=== PATIENT | male | born 1935 | race Caucasian/White ===

== ENCOUNTER 2020-07-09 09:09 | Outpatient (CLI) | payer MEDICARE, SELFPAY ==
--- NOTE | 2020-07-09 09:16 | CT_ITS ---
WS: [id number] CT ABDOMEN PELVIS TECHNIQUE: Contrast-enhanced CT of the abdomen and pelvis with coronal and sagittal reformatted image s. CLINICAL INFORMATION: LOWER ABDOMEN PAIN COMPARISON: None. DLP: 1190.[address] scans at [facility] use at least one of these dose optimization techniques: automat ed exposure control; mA and/or kV adjustment per patient size (includes targeted exams where dose is matched to clinical indication); or iterative reconstruction. FINDINGS: Diffuse fatty infiltration the liver. Large area of low-attenuation involving the right hepatic lobe with surrounding micronodular disease. Findings are most compatible with metastatic disease. Large ri ght hepatic lesion measures 9.1 x 6.1 CM. Portal vein and splenic vein are patent. Small calculus in the gallbladder. Diffuse induration with mesenteric nodularity consistent with peritoneal carcinomatosis. Small amount of perihepatic and perisplenic ascites. Small amount of fluid in the pericolic gutters. Small splenu le. Small esophageal hiatal hernia. Lung bases are well aerated. Small right pleural effusion. Fatty atrophy of the pancreas. Mild aortic calcification. Small infrarenal abdominal aortic aneurysm measur ing 2.7 x 3.1 CM. Adrenal glands are normal. No hydronephrosis in either kidney. Bilateral renal cyst s the largest on the right measuring 5.5 x 4.5 CM. Mild prostate enlargement with calcification. Prostate measures 5.1 CM. Mild thickening of the semina l vesicles. No periaortic or retroperitoneal lymphadenopathy. Small amount of free fluid in the pelvi s. No inguinal lymphadenopathy. No pelvic lymphadenopathy. CT/CT abdomen pelvis w con* [id number] IMPRESSION: 1. Large low-attenuation lesion right hepatic lobe measuring 6.1 x 9.1 cm. Corrie rounding satellite nodules. Findings suspicious for metastatic disease. 2. Induration with nodular implants involving the greater omentum consistent w ith peritoneal carcinomatosis. 3. Small amount of perihepatic and perisplenic ascites. Small amount of fluid in the pericolic gutters. 4. No abdominal or pelvic lymphadenopathy. 5. Enlarged prostate measuring 5.1 CM. Recommend correlation PSA. Mild thicken ing of the seminal vesicles. 6. Bladder is contracted with mild bladder wall thickening can be seen with bl adder outlet obstruction. 7. Small infrarenal abdominal aortic aneurysm measuring 2.7 x [address] Ellis nurse at 07/09/2020 11:43 AM.
[2020-07-09] MEDS: iohexol 300 mg/mL 50 mL Btl PO (09:27)
[2020-07-09] MEDS: iohexol 300 mg/mL 100 mL Btl IV (10:51)
== END 2020-07-09 09:10 | disposition home or self-care (01) ==
LOC: RADWPI 09:12
PROVIDERS: PCP Internal Medicine; Visit Provider Internal Medicine
DX: R10.30 Lower abdominal pain, unspecified (principal); I71.4 Abdominal aortic aneurysm, without rupture; N40.0 Benign prostatic hyperplasia without lower urinary tract symptoms; R18.8 Other ascites; K76.9 Liver disease, unspecified
CPT/HCPCS: 74177; Q9967

== ENCOUNTER 2020-07-31 06:34 | Day surgery (SDC) | payer MEDICARE, SELFPAY ==
[2020-07-31] VITALS (12 sets, daily range): BP systolic 95–164; BP diastolic 57–99; PULSE 63–72; RESP 12–18; TEMP 36.3–36.5; O2SAT 92–98
--- NOTE | 2020-07-31 | US_ITS ---
WS: [id number] ULTRASOUND-GUIDED LIVER BIOPSY HISTORY: LIVER LESION Procedure, risks, and complications have been explained to the patient. Consent is obtained. Risk of possible bowel perforation was included. There is a loop of colon that extends very close to the surf maryam of the liver. Comparison: 07/09/2020. Skin is cleansed with ChloraPrep and then anesthetized with 1% buffered lidocaine. Core biopsy is per formed with a 18 gauge Achieve needle. Specimen is placed within formalin. No complications encounter ed. The colon is visualized during the examination and does not appear to be along the tract of the n eedle. US/US biopsy liver [id number] IMPRESSION: 2 core biopsies were performed of the lesion within the liver. Specimen placed in formalin.
[2020-07-31] MEDS: sodium chloride 0.9% 1,000 ML 30 ML IV ×2 (07:38→07:59)
[2020-07-31 07:45] LABS: INR 1.34 (0.8-1.2)
[2020-07-31] MEDS: midazolam 1 mg/mL INJ 2 mL IVP (08:36)
[2020-07-31] MEDS: fentaNYL 50 mcg/mL INJ 2mL IVP (08:37)
--- NOTE | 2020-07-31 09:27 | SUR.PHASEII ---
0855 Pt to be recovered following ultrasound guided needle biopsy of liver. Dressing to right lower quadrant D/I. VSS. Pt denies pain. Pt family notified of completion of procedure and at bedside. Will monitor for 2 hours post procedure per Dr. Martinez and discharge if stable.
--- NOTE | 2020-07-31 13:23 | SUR.PHASEII ---
1100 Pt VSS. No bleeding or hematoma noted. Discharge instructions given. Pt and friend verbalized understanding. Pt to resume ASA and Coumadin tomorrow, 08/01/20, per Dr. Martinez.
== END 2020-07-31 11:00 | disposition home or self-care (01) ==
LOC: CCL 06:34
PROVIDERS: Radiology Diagnostic Radiology; Radiology Neuroradiology; PCP Internal Medicine; Visit Provider Pathology Anatomic Pathology & Clinical Pathology
DX: C78.7 Secondary malignant neoplasm of liver and intrahepatic bile duct (principal); E78.00 Pure hypercholesterolemia, unspecified; I10 Essential (primary) hypertension; I48.91 Unspecified atrial fibrillation; I25.10 Atherosclerotic heart disease of native coronary artery without angina pectoris; Z80.0 Family history of malignant neoplasm of digestive organs; Z87.891 Personal history of nicotine dependence; Z79.01 Long term (current) use of anticoagulants; E66.3 Overweight; Z68.32 Body mass index [BMI] 32.0-32.9, adult; N40.0 Benign prostatic hyperplasia without lower urinary tract symptoms
CPT/HCPCS: 36415; 47000; 76942; 85610; 88307; 96374; 96375; J2250; J3010; J7030

== ENCOUNTER 2020-08-05 07:49 | Emergency (ER) | payer MEDICARE, SELFPAY ==
[2020-08-05 07:55] VITALS: BP 109/86; PULSE 78; RESP 20; TEMP 35.7; O2SAT 96; BMI 31.5
--- NOTE | 2020-08-05 08:05 | XR_ITS ---
WS: [id number] PORTABLE CHEST HISTORY: dyspnea/cough COMPARISON: 03/15/2013 Prior CABG. No pneumonia. No pleural effusion or pneumothorax. Cardiac size: Normal. Mediastinum/Aorta: Prior CABG. No mediastinal widening. Mild atherosclerosis. No osseous abnormality seen. XR/XR chest 1V portable [id number] IMPRESSION: Prior CABG. No pneumonia.
[2020-08-05 08:49] LABS: Basophils # 0.1 10^3/uL (0.0-0.1); Basophils % 0.4 %; Eosinophils % 0.3 %; Hematocrit 53.6 % (42.0-52.0); Lymphocytes # 1.2 10^3/uL (0.8-4.8); Lymphocytes % 8.9 %; Mean Corpuscular HGB Conc 31.7 g/dL (30.0-36.0); Mean Corpuscular Hemoglobin 28.8 pg (28.0-34.0); Mean Corpuscular Volume 90.8 fL (80-94); Mean Platelet Volume 8.9 fL (7.4-10.4); Monocytes # 0.8 10^3/uL (0.2-0.9); Monocytes % 6.4 %; Neutrophils # 10.87 10^3/uL (1.8-7.7); Neutrophils % 83.3 %; Nucleated Red Blood Cells % 0 %; Platelet Count 396 10^3/cmm (130-400); Red Cell Distribution Width 14.3 % (12.1-15.1)
--- NOTE | 2020-08-05 08:55 | US_ITS ---
WS: [id number] ULTRASOUND-GUIDED THERAPEUTIC PARACENTESIS Procedure, risks, and complications have been explained to the patient. Consent is obtained. Utilizing aseptic technique and 1% buffered lidocaine, a small dermatome was made through which a 5 F rench Yueh catheter was inserted. Approximately 3000 ml of clear peritoneal fluid was obtained witho ut difficulty. No complications encountered. US/US paracentesis abd w [id number] IMPRESSION: Uncomplicated paracentesis yielding 3000 ml of peritoneal fluid.
--- NOTE | 2020-08-05 08:58 | W.ED.ABDPA2 ---
HPI - Abdominal Pain General: Chief Complaint: Abdominal Pain Stated Complaint: Sent From /[facility] on Stomach Time Seen by Provider: 08/05/20 08:03 History of Present Illness: HPI narrative: 84-year-old male presents emergency room with complaints abdominal distention and bloating. 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 He is on Coumadin. He was off Coumadin for a time when I did the liver biopsy and then resumed it he is not sure of his last INR. He is evidently directed here by his primary care physician to have paracentesis done. He denies any shortness of breath he is not had any fever. He is just generally uncomfortable due to the bloating. MD elicited complaint: abdominal pain Pertinent past history: other (Gastric CA with hepatic mets) Onset (ago): day(s) Pain Consistency: constant Location: Epigastric Severity: severe Quality: stabbing and aching Radiation: back and chest Exacerbating factors: eating Associated Symptoms: Reports anorexia, belching, bloating, GI cramping, nausea and poor appetite; Denies change in bowel habits, change in stool character, chills, coffee ground emesis, constipation, diarrhea, dyspepsia, dysuria, excessive flatus, fever(s), heartburn, hematochezia, hematuria, hematemesis, fecal incontinence, loose stools, melena, syncope and vomiting Review of Systems Const: Denies: fever(s) or chills ENMT: Denies: throat pain, ear or mastoid pain, nasal discharge or nasal congestion Card: Denies: syncope Resp: Denies: dyspnea, productive cough or non-productive cough GI: Reports: nausea, bloating, GI cramping and belching; Denies: vomiting, hematemesis, coffee ground emesis, heartburn, diarrhea, constipation, excessive flatus, fecal incontinence, change in bowel habits, change in stool character, hematochezia or melena : Denies: dysuria or hematuria Skin/Breast: Denies: rash or pruritus PFSH ED PFSH: Medical History Atherosclerotic heart disease Atrial fibrillation Dyslipidemia (high LDL; low HDL) HTN (hypertension) Leg swelling Surgical History S/P CABG (coronary artery bypass graft) S/P thyroid surgery Status post aspiration of abscess Family History Brother ASHSangeetha (arteriosclerotic heart disease) Social History Smoking and tobacco status: former smoker Physical Exam Const: COMMON NORMALS: no acute distress GENERAL APPEARANCE: cooperative and comfortable ORIENTATION/CONSCIOUSNESS: Yes awake, Yes oriented to person, Yes oriented to place and Yes oriented to time HENMT: COMMON NORMALS: normocephalic, atraumatic and hearing grossly normal bilaterally HEAD & SCALP: normocephalic and atraumatic Neck/C-Spine: COMMON NORMALS: no JVD Resp: COMMON NORMALS: normal respiratory effort, No retractions, No use of accessory muscles and clear to auscultation bilaterally AUSCULTATION: clear to auscultation bilaterally Cardio: COMMON NORMALS: no JVD, regular rate, regular rhythm and No murmurs present (Cardio) RATE: regular rate RHYTHM: regular rhythm GI: COMMON NORMALS: Soft to palpation and No hepatosplenomegaly present AUSCULTATION: Yes normoactive bowel sounds PALPATION: Yes Soft to palpation, Yes Tenderness to palpation present (GI) (Gastric), No Guarding due to palpation present (GI) and Yes No hepatosplenomegaly present Extremity: COMMON NORMALS: normal to inspection, capillary refill normal, no clubbing, cyanosis or edema, no calf tenderness and no pedal edema Neuro: SENSORIUM/ORIENTATION: Yes oriented to person, Yes oriented to place and Yes oriented to time Skin: COMMON NORMALS: no rashes or lesions noted GENERAL SKIN EXAM: no rashes or lesions noted Course Vital Signs: Vital signs: Vital Signs Temperature 96.2 F L 08/05/20 07:55 Pulse Rate 70 08/05/20 12:46 Respiratory Rate 18 08/05/20 12:46 Blood Pressure 107/58 08/05/20 12:46 Pulse Oximetry 92 08/05/20 12:46 MDM - Abdominal Pain Lab Data: Labs: Lab Results 08/05/20 08/05/20 08/05/20 Range/Units 08:30 08:30 08:30 WBC 13.0 H (4.0-10.0) 10^3/ uL RBC 5.90 H (4.1-5.3) 10^6/u L Hgb 17.0 H (11.7-16.6) g/dL Hct 53.6 H (42.0-52.0) % MCV 90.8 (80-94) fL MCH 28.8 (28.0-34.0) pg MCHC 31.7 (30.0-36.0) g/dL RDW 14.3 (12.1-15.1) % Plt Count 396 (130-400) 10^3/c mm MPV 8.9 (7.4-10.4) fL Neut % (Auto) 83.3 % Lymph % (Auto) 8.9 % [place] % (Auto) 6.4 % Eos % (Auto) 0.3 % Baso % (Auto) 0.4 % Neut # (Auto) 10.87 H (1.8-7.7) 10^3/u L Lymph # (Auto) 1.2 (0.8-4.8) 10^3/u L [place] # (Auto) 0.8 (0.2-0.9) 10^3/u L Eos # (Auto) 0.0 (0.0-0.8) 10^3/u L Baso # (Auto) 0.1 (0.0-0.1) 10^3/u L Nucleated RBC % (a uto) 0 % Nucleated RBCs # 0.0 /100WBC PT 17.40 H (12.1-14.9) SECO NDS INR 1.38 H (0.8-1.2) APTT 35.5 (23.9-36.7) SECO NDS Sodium 133 L (136-145) mmol/L Potassium 4.9 (3.5-5.1) mmol/L Chloride 94 L (98-107) mmol/L Carbon Dioxide 25 (22-29) mmol/L Anion Gap 18.9 (5-19) BUN 64 H (8-23) mg/dL Creatinine 2.0 H (0.7-1.2) mg/dL GFR Calculation Not Reportable Glucose 122 H (65-115) mg/dL Calculated Osmolal ity 296 H (285-295) mOsm/k g Calcium 8.9 (8.5-10.5) mg/dL Total Bilirubin 1.1 (0.15-1.2) mg/dL AST 67 H (0-40) U/L ALT 23 (0-41) U/L Alkaline Phosphata se 278 H (40-130) IU/L Total Protein 7.7 (6.6-8.7) g/dL Albumin 3.1 L (3.5-5.2) g/dL Globulin 4.6 (1.3-4.6) g/dL Lipase 32 (13-60) U/L Urine Color (Yellow) Urine Appearance (CLEAR) Urine pH (5-7) Ur Specific Gravit y (1.005-1.030) Urine Protein (Negative) Urine Glucose (UA) (Normal) Urine Ketones (Negative) Urine Blood (Negative) Urine Nitrate (Negative) Urine Bilirubin (Negative) Urine Urobilinogen (Negative) mg/dL Ur Leukocyte Elin ase (Negative) Urine RBC (0-2) /hpf Urine WBC (0-5) /hpf Ur Squamous Epith Cells (0-5) /hpf Amorphous Sediment Urine Bacteria (NONE) /hpf Hyaline Casts /lpf Urine Mucus /hpf 08/05/ Range/Units 09:50 WBC (4.0-10.0) 10^3/ uL RBC (4.1-5.3) 10^6/u L Hgb (11.7-16.6) g/dL Hct (42.0-52.0) % MCV (80-94) fL MCH (28.0-34.0) pg MCHC (30.0-36.0) g/dL RDW (12.1-15.1) % Plt Count (130-400) 10^3/c mm MPV (7.4-10.4) fL Neut % (Auto) % Lymph % (Auto) % [place] % (Auto) % Eos % (Auto) % Baso % (Auto) % Neut # (Auto) (1.8-7.7) 10^3/u L Lymph # (Auto) (0.8-4.8) 10^3/u L [place] # (Auto) (0.2-0.9) 10^3/u L Eos # (Auto) (0.0-0.8) 10^3/u L Baso # (Auto) (0.0-0.1) 10^3/u L Nucleated RBC % (a uto) % Nucleated RBCs # /100WBC PT (12.1-14.9) SECO NDS INR (0.8-1.2) APTT (23.9-36.7) SECO NDS Sodium (136-145) mmol/L Potassium (3.5-5.1) mmol/L Chloride (98-107) mmol/L Carbon Dioxide (22-29) mmol/L Anion Gap (5-19) BUN (8-23) mg/dL Creatinine (0.7-1.2) mg/dL GFR Calculation Glucose (65-115) mg/dL Calculated Osmolal ity (285-295) mOsm/k g Calcium (8.5-10.5) mg/dL Total Bilirubin (0.15-1.2) mg/dL AST (0-40) U/L ALT (0-41) U/L Alkaline Phosphata se (40-130) IU/L Total Protein (6.6-8.7) g/dL Albumin (3.5-5.2) g/dL Globulin (1.3-4.6) g/dL Lipase (13-60) U/L Urine Color Yellow (Yellow) Urine Appearance Clear (CLEAR) Urine pH 5 (5-7) Ur Specific Gravit y 1.020 (1.005-1.030) Urine Protein Neg (Negative) Urine Glucose (UA) Norm (Normal) Urine Ketones Negative (Negative) Urine Blood Trace H (Negative) Urine Nitrate Negative (Negative) Urine Bilirubin Neg (Negative) Urine Urobilinogen 1 H (Negative) mg/dL Ur Leukocyte Elin ase Trace H (Negative) Urine RBC 0-4 H (0-2) /hpf Urine WBC 0-4 H (0-5) /hpf Ur Squamous Epith Cells 0-4 H (0-5) /hpf Amorphous Sediment Not Reportable Urine Bacteria 1+ H (NONE) /hpf Hyaline Casts 5-10 H /lpf Urine Mucus Trace /hpf Discharge Plan Discharge Patient Disposition: Home Clinical Impression: Abdominal ascites, Gastric carcinoma Condition: Stable Prescriptions: No Action simvastatin 40 mg tablet 40 mg PO DAILY RF: 0 furosemide 40 mg tablet 40 mg PO DAILY RF: 0 metoprolol tartrate 25 mg tablet 25 mg PO BID RF: 0 warfarin 3 mg tablet 3 mg PO DAILY RF: 0 aspirin [Adult Low Dose Aspirin] 81 mg tablet,delayed release (DR/EC) 81 mg PO DAILY RF: 0 digoxin 125 mcg (0.125 mg) tablet 125 mcg PO DAILY RF: 0 hydrocodone-acetaminophen 5-325 mg Tablet 1 tab PO Q4H PRN (Reason: Pain) RF: 0 Discharge Orders: Discharge ED (Routine); Ordered 08/05/20 Ordered By: Rupert Mccartney Referrals: Sandip Sargent DO [Primary Care Provider] - Discharge Diet: Usual diet Discharge Activity: Resume usual activity Activity Restrictions/Additional Instructions: Follow-up with Dr. Sargent in the office this week. Coding Level of Care Code ED Landscape Architect for Keena Torres
[2020-08-05 09:01] VITALS: BP 112/63; RESP 18; O2SAT 94
[2020-08-05 09:05] LABS: Alanine Aminotransferase 23 U/L (0-41); Albumin Level 3.1 g/dL (3.5-5.2); Alkaline Phosphatase 278 IU/L (40-130); Anion Gap 18.9 (5-19); Aspartate Amino Transferase 67 U/L (0-40); Blood Urea Nitrogen 64 mg/dL (8-23); Calcium 8.9 mg/dL (8.5-10.5); Carbon Dioxide 25 mmol/L (22-29); Chloride 94 mmol/L (98-107); Globulin 4.6 g/dL (1.3-4.6); Glucose 122 mg/dL (65-115); Lipase 32 U/L (13-60); Osmolality Calculated 296 mOsm/kg (285-295); Potassium 4.9 mmol/L (3.5-5.1); Sodium 133 mmol/L (136-145); Total Bilirubin 1.1 mg/dL (0.15-1.2); Total Protein 7.7 g/dL (6.6-8.7)
[2020-08-05 09:33] LABS: INR 1.38 (0.8-1.2)
[2020-08-05 09:34] LABS: Partial Thromboplastin Time 35.5 SECONDS (23.9-36.7)
[2020-08-05 10:30] VITALS: BP 118/62; PULSE 67; RESP 18; O2SAT 95
--- NOTE | 2020-08-05 10:46 | PC.NURSE ---
Radiology at bedside for paracentesis procedure
[2020-08-05 10:51] LABS: Add Urine Microscopic? YES; Bilirubin Urine Neg (Negative); Blood Urine Trace (Negative); Glucose Urine UA Norm (Normal); Ketones Urine Negative (Negative); Leukocyte Esterase Urine Trace (Negative); Nitrate Urine Negative (Negative); Protein Urine Neg (Negative); Urine Appearance Clear (CLEAR); Urine Color Yellow (Yellow); Urobilinogen Urine 1 mg/dL (Negative); pH Urine 5 (5-7)
[2020-08-05 10:52] LABS: Add Urine Culture? No; Bacteria Urine 1+ /hpf; Mucus Urine TRACE /hpf; RBC Urine 0-4 /hpf (0-2); Squamous Epithelial Cell Urine 0-4 /hpf (0-5); WBC Urine 0-4 /hpf (0-5)
[2020-08-05 11:30] VITALS: BP 138/83; PULSE 68; RESP 18; O2SAT 94
[2020-08-05 12:46] VITALS: BP 107/58; PULSE 70; RESP 18; O2SAT 92
== END 2020-08-05 12:42 | disposition home or self-care (01) ==
PROVIDERS: Emergency Provider Family Medicine; PCP Internal Medicine
DX: R18.8 Other ascites (principal); C16.9 Malignant neoplasm of stomach, unspecified; Z79.01 Long term (current) use of anticoagulants; Z79.82 Long term (current) use of aspirin; I48.91 Unspecified atrial fibrillation; E78.5 Hyperlipidemia, unspecified; I10 Essential (primary) hypertension; Z87.891 Personal history of nicotine dependence
CPT/HCPCS: 12345; 49083; 71045; 80053; 81001; 83690; 85025; 85610; 85730; 99282; 99283

== ENCOUNTER 2020-08-14 12:45 | Inpatient (IN) | payer MEDICARE, SELFPAY ==
[2020-08-14] VITALS (12 sets, daily range): BP systolic 95–133; BP diastolic 64–80; PULSE 66–95; RESP 13–24; TEMP 36.3–36.6; O2SAT 94–97; BMI 28.7
--- NOTE | 2020-08-14 13:30 | US_ITS ---
WS: [id number] ULTRASOUND ABDOMEN LIMITED CLINICAL INFORMATION: Ascites secondary to gastric carcinoma COMPARISON: None. FINDINGS: 4 quadrant ultrasound. Small to moderate volume ascites. Patient offered paracentesis but deferred at this time. Patient will follow-up as needed for outpatient paracentesis. US/US abdomen limited [id number] IMPRESSION: Small to moderate volume ascites. Patient deferred paracentesis at this time.
--- NOTE | 2020-08-14 13:35 | ED_ITS ---
HPI - General Adult General: Chief complaint: Nausea/Vomiting/Diarrhea Stated complaint: WEAKNESS, DIARRHEA Time Seen by Provider: 08/14/20 13:21 History of Present Illness: HPI narrative: 84-year-old male presents emergency room complaining of swelling and distention his abdomen. He has known gastric carcinoma with metastasis we seen him about 9 days ago and did a paracentesis at that time to relieve some of the fluid. He returns again today complaining of distention of his abdomen. It is causing discomfort and shortness of breath he like to have it paracentesis to relieve the fluid again. He denies chest pain fever sweats or chills. Onset (ago): day(s) Location: abdomen Radiation: non-radiation Severity: mild Relieving factors: none Exacerbating factors: none Associated symptoms: Reports weakness; Deny chest pain, confusion, cough, diaphoresis, decreased appetite, dyspnea, fevers/chills, headache(s), malaise, nausea, rash, palpitations, seizures, short of breath, syncope or vomiting Treatments prior to arrival: none Review of Systems Const: Denies: malaise or diaphoresis ENMT: Denies: throat pain, ear or mastoid pain, nasal discharge or nasal congestion Card: Denies: chest pain, palpitations or syncope Resp: Denies: dyspnea GI: Denies: nausea or vomiting : Denies: flank pain, dysuria, urinary frequency or urinary urgency Skin/Breast: Denies: rash Neuro: Denies: headache(s) or confusion PFSH ED PFSH: Medical History (Updated 08/14/20 @ 17:10 by Rupert Mccartney DO) Atherosclerotic heart disease Atrial fibrillation Dyslipidemia (high LDL; low HDL) HTN (hypertension) Leg swelling Surgical History S/P CABG (coronary artery bypass graft) S/P thyroid surgery Status post aspiration of abscess Family History Brother ASHD (arteriosclerotic heart disease) Social History Smoking and tobacco status: former smoker Alcohol intake: never Substance/Drug Use: never Physical Exam Const: COMMON NORMALS: no acute distress GENERAL APPEARANCE: cooperative and comfortable ORIENTATION/CONSCIOUSNESS: Yes awake, Yes oriented to person, Yes oriented to place and Yes oriented to time HENMT: COMMON NORMALS: normocephalic, atraumatic and hearing grossly normal bilaterally HEAD & SCALP: normocephalic and atraumatic Neck/C-Spine: COMMON NORMALS: no JVD Resp: COMMON NORMALS: normal respiratory effort, No retractions, No use of accessory muscles and clear to auscultation bilaterally AUSCULTATION: clear to auscultation bilaterally Cardio: COMMON NORMALS: no JVD, regular rate, regular rhythm and No murmurs present (Cardio) RATE: regular rate RHYTHM: regular rhythm GI: COMMON NORMALS: Soft to palpation and No hepatosplenomegaly present AUSCULTATION: Yes normoactive bowel sounds PALPATION: Yes Soft to palpation, No Tenderness to palpation present (GI), No Guarding due to palpation present (GI) and Yes No hepatosplenomegaly present Extremity: COMMON NORMALS: normal to inspection, capillary refill normal, no clubbing, cyanosis or edema, no calf tenderness and no pedal edema Neuro: SENSORIUM/ORIENTATION: Yes oriented to person, Yes oriented to place and Yes oriented to time Skin: COMMON NORMALS: no rashes or lesions noted GENERAL SKIN EXAM: no rashes or lesions noted Course Vital Signs: Vital signs: Vital Signs Temperature 97.3 F L 08/14/20 12:53 Pulse Rate 75 08/14/20 16:00 Respiratory Rate 16 08/14/20 16:00 Blood Pressure 130/65 08/14/20 16:00 Pulse Oximetry 96 08/14/20 16:00 MDM - General Adult MDM Narrative: Medical decision making narrative: Patient has some prerenal azotemia as well as hyperkalemia. He will need to be judiciously rehydrated due to his third spacing of fluid in the abdomen from his cancer. Very concerning about his marked increase in INR. Will admit to hydrate and monitor. Lab Data: Labs: Lab Results 08/14/20 08/14/20 08/14/20 Range/Units 13:55 13:55 13:55 WBC 12.4 H (4.0-10.0) 10^3/ uL RBC 6.02 H (4.1-5.3) 10^6/u L Hgb 16.8 H (11.7-16.6) g/dL Hct 52.5 H (42.0-52.0) % MCV 87.2 (80-94) fL MCH 27.9 L (28.0-34.0) pg MCHC 32.0 (30.0-36.0) g/dL RDW 15.2 H (12.1-15.1) % Plt Count 377 (130-400) 10^3/c mm MPV 9.4 (7.4-10.4) fL Neut % (Auto) 84.2 % Lymph % (Auto) 9.5 % [place] % (Auto) 5.5 % Eos % (Auto) 0.1 % Baso % (Auto) 0.1 % Neut # (Auto) 10.46 H (1.8-7.7) 10^3/u L Lymph # (Auto) 1.2 (0.8-4.8) 10^3/u L [place] # (Auto) 0.7 (0.2-0.9) 10^3/u L Eos # (Auto) 0.0 (0.0-0.8) 10^3/u L Baso # (Auto) 0.0 (0.0-0.1) 10^3/u L Nucleated RBC % (a uto) 0 % Nucleated RBCs # 0.0 /100WBC PT 29.80 H (12.1-14.9) SECO NDS INR 2.72 H (0.8-1.2) APTT 56.0 H (23.9-36.7) SECO NDS Sodium 131 L (136-145) mmol/L Potassium 5.4 H (3.5-5.1) mmol/L Chloride 93 L (98-107) mmol/L Carbon Dioxide 22 (22-29) mmol/L Anion Gap 21.4 H (5-19) BUN 129 H* D (8-23) mg/dL Creatinine 2.1 H (0.7-1.2) mg/dL GFR Calculation Not Reportable Glucose 142 H (65-115) mg/dL Calculated Osmolal ity 316 H (285-295) mOsm/k g Calcium 8.6 (8.5-10.5) mg/dL Total Bilirubin 0.8 (0.15-1.2) mg/dL AST 71 H (0-40) U/L ALT 27 (0-41) U/L Alkaline Phosphata se 328 H (40-130) IU/L Total Protein 7.5 (6.6-8.7) g/dL Albumin 2.9 L (3.5-5.2) g/dL Globulin 4.6 (1.3-4.6) g/dL Discharge Plan Discharge Patient Disposition: Admitted As Inpatient Clinical Impression: Gastric cancer, Hepatic metastases, Acute hyperkalemia, Acute prerenal azotemia Condition: Stable Prescriptions: No Action metoprolol tartrate 25 mg tablet 25 mg PO BID@0700,1900 RF: 0 digoxin 125 mcg (0.125 mg) tablet 125 mcg PO DAILY@0700 RF: 0 hydrocodone-acetaminophen 5-325 mg Tablet 1 tab PO Q4H PRN (Reason: Pain) RF: 0 lorazepam 0.5 mg Tablet 0.5 mg PO Q4H PRN (Reason: sleep/stress) RF: 0 hydrocodone-acetaminophen 7.5-325 mg Tablet 1 tab PO Q6H PRN (Reason: Pain) RF: 0 Referrals: Sandip Sargent DO [Primary Care Provider] - Coding Level of Care Code ED Communications Analyst for g Fwd Exam Comprehensive
[2020-08-14 14:37] LABS: INR 2.72 (0.8-1.2)
[2020-08-14 14:40] LABS: Basophils % 0.1 %; Eosinophils % 0.1 %; Hematocrit 52.5 % (42.0-52.0); Hemoglobin 16.8 g/dL (11.7-16.6); Lymphocytes # 1.2 10^3/uL (0.8-4.8); Lymphocytes % 9.5 %; Mean Corpuscular Hemoglobin 27.9 pg (28.0-34.0); Mean Corpuscular Volume 87.2 fL (80-94); Mean Platelet Volume 9.4 fL (7.4-10.4); Monocytes # 0.7 10^3/uL (0.2-0.9); Monocytes % 5.5 %; Neutrophils # 10.46 10^3/uL (1.8-7.7); Neutrophils % 84.2 %; Nucleated Red Blood Cells % 0 %; Platelet Count 377 10^3/cmm (130-400); Red Blood Count 6.02 10^6/uL (4.1-5.3); Red Cell Distribution Width 15.2 % (12.1-15.1); White Blood Count 12.4 10^3/uL (4.0-10.0)
[2020-08-14] MEDS: sodium chloride 0.9% 500 ML 999 ML IV (14:57)
[2020-08-14] MEDS: ondansetron 2 mg/ML SDV 2 mL 4 MG IVP (14:57)
[2020-08-14 15:03] LABS: Albumin Level 2.9 g/dL (3.5-5.2); Alkaline Phosphatase 328 IU/L (40-130); Anion Gap 21.4 (5-19); Aspartate Amino Transferase 71 U/L (0-40); Carbon Dioxide 22 mmol/L (22-29); Chloride 93 mmol/L (98-107); Globulin 4.6 g/dL (1.3-4.6); Glucose 142 mg/dL (65-115); Potassium 5.4 mmol/L (3.5-5.1); Sodium 131 mmol/L (136-145); Total Bilirubin 0.8 mg/dL (0.15-1.2); Total Protein 7.5 g/dL (6.6-8.7)
[2020-08-14 15:42] LABS: Alanine Aminotransferase 27 U/L (0-41); Calcium 8.6 mg/dL (8.5-10.5)
[2020-08-14 16:31] LABS: Blood Urea Nitrogen 129 mg/dL (8-23); Osmolality Calculated 316 mOsm/kg (285-295)
[2020-08-14] MEDS: sodium polystyrene sulfonate 15 gm/60 mL Btl PO (16:44)
[2020-08-14] MEDS: sodium chloride 0.45% 1,000 ML 150 ML IV (17:20)
--- NOTE | 2020-08-14 17:41 | PM.HP ---
Providers/Chief Complaint Primary Care Provider: Sandip Sargent DO Chief Complaint: WEAKNESS, DIARRHEA History of Present Illness Goran Betancourt is a 84 year old male with a past medical history of CABG, atrial fibrillation on Coumadin, hypertension, hyperlipidemia, newly diagnosed metastatic cancer with unknown primary but suspect GI source, diagnosed June 2020, biopsy proven 07/22/2020, recurrent ascites status post paracentesis who presents to [facility] due to weakness, fatigue, poor appetite, increased abdominal distention. Patient denies any fevers, chills, has nausea, no vomiting, no diarrhea, no known exposure to COVID-19, no cough, no shortness of breath, no chest pain. Patient has not seen oncology as of yet, he is supposed to see oncology on Wednesday. Patient declined paracentesis in the ER, but did have roughly 3 L removed a few days ago. Review of Systems Const: Reports: fatigue and malaise; Denies: fever(s) or chills Eyes: Denies: change in vision or blurry vision ENMT: Denies: nasal congestion Card: Denies: chest pain or palpitations Resp: Denies: dyspnea, productive cough, non-productive cough or wheezing GI: Denies: abdominal pain, nausea, vomiting, hematemesis, diarrhea, constipation, hematochezia or melena : Denies: flank pain, difficulty urinating, dysuria or urinary frequency Musc: Denies: neck pain or back pain Skin/Breast: Denies: rash Neuro: Denies: headache(s), dizziness or vertigo Psych: Denies: anxiety or depression Endo: Denies: polyuria or polydipsia Medications/Allergies Home Medications Medication Instructions Recorded Confirmed Last Taken Type digoxin 125 mcg (0.125 mg) tablet 125 mcg PO DAILY@0700 11/20/19 08/14/20 08/13/20 History metoprolol tartrate 25 mg tablet 25 mg PO BID@0700,1900 11/20/19 08/14/20 08/14/20 History hydrocodone-acetaminophen 1 tab PO Q4H PRN 07/31/20 08/14/20 08/14/20 History hydrocodone-acetaminophen 1 tab PO Q6H PRN 08/14/20 08/14/20 08/13/20 History lorazepam 0.5 mg PO Q4H PRN 1208/14/20 08/13/20 History Allergies Allergy/AdvReac Type Severity Reaction Status Date / Time No Known Allergies Allergy Unverified 11/20/19 09:50 PFSH Acute PFSH: Medical History (Updated 08/14/20 @ 17:54 by Gavin Gibson MD) Atherosclerotic heart disease Atrial fibrillation Dyslipidemia (high LDL; low HDL) HTN (hypertension) Leg swelling Surgical History S/P CABG (coronary artery bypass graft) S/P thyroid surgery Status post aspiration of abscess Family History (Updated 08/14/20 @ 17:51 by Gavin Gibson MD) Brother ASHD (arteriosclerotic heart disease) Brother Pancreatic cancer Sister Lung cancer Sister Skin cancer Social History Smoking and tobacco status: former smoker Alcohol intake: never Substance/Drug Use: never Vitals/I&O/Wt Last Vital Signs Temp 97.3 F L 08/14/20 12:53 Pulse 75 08/14/20 16:00 Resp 16 08/14/20 16:00 BP 130/65 08/14/20 16:00 Pulse Ox 96 08/14/20 16:00 08/14/20 08/14/20 08/14/20 06:59 14:59 22:59 Intake Total 500 / 500 Balance 500 / 500 Weight last 48 hrs Weight 90.718 kg Physical Exam Const: COMMON NORMALS: no acute distress and patient oriented x3 GENERAL APPEARANCE: cooperative and comfortable HENMT: COMMON NORMALS: normocephalic HEAD & SCALP: normocephalic Eye: COMMON NORMALS: Equal, round and reactive pupils present and EOMs intact bilaterally GENERAL EYE: appearance normal, both eyes and all related structures PUPIL: Yes Equal, round and reactive pupils present Neck/C-Spine: COMMON NORMALS: full ROM, no lymphadenopathy, no JVD and Thyroid normal THYROID: Thyroid normal Lymph: LYMPHATIC: no lymphadenopathy noted Resp: COMMON NORMALS: normal respiratory effort, No retractions, No use of accessory muscles and clear to auscultation bilaterally AUSCULTATION: clear to auscultation bilaterally Cardio: COMMON NORMALS: no JVD, regular rate, regular rhythm, S1 normal heart sound present, S2 normal heart sound present, No gallops present (Cardio), No clicks present (Cardio) and No murmurs present (Cardio) RATE: regular rate RHYTHM: regular rhythm HEART SOUNDS: S1 normal heart sound present and S2 normal heart sound present GI: COMMON NORMALS: Normal to inspection, nondistended, normoactive bowel sounds present, Soft to palpation, non-tender and No hepatosplenomegaly present INSPECTION: Yes abdominal distension PALPATION: Yes Soft to palpation and Yes No hepatosplenomegaly present PERCUSSION: tympanic to percussion Extremity: COMMON NORMALS: normal to inspection, full ROM and no pedal edema Neuro: COMMON NORMALS: patient oriented x3, CN's II-XII intact bilaterally, moves all extremities and no focal motor deficits Psych: COMMON NORMALS: mental status grossly normal, Normal thought process present and cooperative THOUGHT PROCESS: Normal thought process present Skin: NARRATIVE SKIN EXAM: Rosacea on the right cheek Data : 08/14/20 13:55 08/14/20 13:55 A&P Assessment and plan (1) 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 -The tumor cells are positive for CK7 and high molecular weight keratin. -The cells are negative for hepatocyte antigen, CDX 2, CK20, and TTF-1. These stains are not specific for a primary lesion. -Primary tumors which have this profile include but are not limited to breast, salivary glands, upper gastrointestinal tract including esophagus, stomach, and small bowel, and tumors of the biliary tract including pancreas. -A primary cholangiolar carcinoma cannot be totally excluded. -The likelihood of a gastrointestinal (upper GI), appendiceal and pancreatobiliary primary is high on differential. Additional clinicopathological correlation with imaging is recommended as the patient has peritoneal carcinomatosis. The tissue biopsy tumor cells are limited and the cell block has been saved for molecular testing or tumor profile as needed by the oncologist. -We will order CT of the chest, CT of the brain Status: Acute (2) Hepatic metastases: Status: Acute (3) Acute hyperkalemia: -Received Kayexalate in the ER, repeat potassium tomorrow Status: Acute (4) Acute prerenal azotemia: -likely secondary to third spacing, dehydration -Very gentle hydration to avoid fluid overload Status: Acute (5) Leg swelling: Status: Acute (6) Dyslipidemia (high LDL; low HDL): Status: Acute (7) Atherosclerotic heart disease: Status: Acute Qualifiers: Coronary Disease-Associated Artery/Lesion type: [place] artery [place] vs. transplanted heart: [place] heart Associated angina: without angina Qualified Code(s): I25.10 - Atherosclerotic heart disease of [place] coronary artery without angina pectoris (8) HTN (hypertension): Status: Acute Qualifiers: Hypertension type: essential hypertension Qualified Code(s): I10 - Essential (primary) hypertension (9) Atrial fibrillation: -Patient's blood pressures are soft, hold metoprolol digoxin -We will discontinue Coumadin for now given elevated INR in the setting of metastatic disease to the liver, high risk of bleeding Status: Acute Qualifiers: Atrial fibrillation type: other persistent Qualified Code(s): I48.19 - Other persistent atrial fibrillation (10) Ascites: -Recurrent ascites -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 -To my knowledge there is been no pleural fluid analysis done in the past -Patient refuses to have a paracentesis during this hospital admission -Given patient's white blood cell count of 12, feelings of fatigue, malaise -We will start him on Cipro and Flagyl for SBP -Continue to clinically monitor Status: Acute Attestations Medical Necessity Statement*: Patient requires hospitalization, outpatient with observation, for metastatic malignancy, with ascites, with dehydration, newly diagnosed Coding Level of Care Code Acute 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 transplanted heart: [place] heart Associated angina: without angina HTN (hypertension) I10 Hypertension type: essential hypertension Atrial fibrillation I48.19 Atrial fibrillation type: other persistent Ascites R18.8
[2020-08-14 18:30] LABS: Digoxin 2.2 ng/mL (0.6-1.2)
--- NOTE | 2020-08-14 19:47 | PC.NURSE ---
Tried to call report to med-surg. No answer, phone kept ringing.
--- NOTE | 2020-08-14 21:10 | CTR_ITS ---
PROCEDURE INFORMATION: Exam: CT Head Without Contrast Exam date and time: 08/14/2020 12:27 AM Age: 84 years old Clinical indication: Condition or disease; Cancer; Patient HX: Evaluation of liver adenocarcinoma with mets; Additional info: Gastric cancer, mets TECHNIQUE: Imaging protocol: Computed tomography of the head without contrast. Radiation optimization: All CT scans at this facility use at least one of these dose optimization techniques: automated exposure control; mA and/or kV adjustment per patient size (includes targeted exams where dose is matched to clinical indication); or iterative reconstruction. COMPARISON: No relevant prior studies available. RADIATION DOSE METRICS: Total DLP (mGy-cm): 766.97 FINDINGS: Brain: There is diffuse cerebral atrophy and chronic microvascular white matter disease. There is no acute intracranial hemorrhage. Cerebral ventricles: There is mild ex vacuo dilation of the lateral ventricles. The basal cisterns are unremarkable. Bones/joints: The calvarium is intact. Paranasal sinuses: The paranasal sinuses are clear. Mastoid air cells: The mastoid air cells are clear. Soft tissues: The visible extracranial soft tissues are unremarkable. CT/CT head wo con* [id number] IMPRESSION: No acute findings. Radiation Dose CTDIVOL = (mGy): DLP = 766.97 (mGy-cm)
--- NOTE | 2020-08-14 21:10 | CTR_ITS ---
PROCEDURE INFORMATION: Exam: CT Chest Without Contrast; Diagnostic Exam date and time: 08/14/2020 12:27 AM Age: 84 years old Clinical indication: Condition or disease; Cancer; Primary site; Prior surgery; Surgery type: Cabg. Thyroid. ; Patient HX: Evaluation of liver adenocarcinoma with mets; Additional info: Gastric cancer w mets TECHNIQUE: Imaging protocol: Diagnostic computed tomography of the chest without contrast. Radiation optimization: All CT scans at this facility use at least one of these dose optimization techniques: automated exposure control; mA and/or kV adjustment per patient size (includes targeted exams where dose is matched to clinical indication); or iterative reconstruction. COMPARISON: CR XR chest 1V portable [id number] 08/05/2020 8:09 AM RADIATION DOSE METRICS: Total DLP (mGy-cm): 1976.4 FINDINGS: Lungs: There are multiple scattered tiny noncalcified nodules in both lungs, some of the nodules are peripheral or pleural based. Largest nodule measures 6 mm in the right upper lobe such as an image number 17 and the others are mostly in the 2-3 mm size range. These nodules are nonspecific and could be related to other etiologies however they are worrisome for metastatic disease and follow-up is suggested. Pleural space: There are small bilateral pleural effusions more on the right than on the left. Heart: Sternotomy wires and mediastinal surgical clips are present, consistent with previous coronary arterial bypass grafting. Aorta: Unremarkable. No aortic aneurysm. Lymph nodes: There are calcified mediastinal and hilar lymph nodes in keeping with old granulomatous disease. There is no evidence of lymphadenopathy. Bones/joints: Unremarkable. No acute fracture. Soft tissues: There is mild bilateral gynecomastia. IMPRESSION: 1. Non-specific pulmonary nodules which raise concern for the possibility of metastatic disease. Follow-up suggested. 2. Small bilateral pleural effusions. 3. No acute infiltrate. PROCEDURE INFORMATION: Exam: CT Abdomen And Pelvis Without Contrast Exam date and time: 08/14/2020 12:27 AM Age: 84 years old Clinical indication: Condition or disease; Cancer; Primary site; Prior surgery; Surgery type: Cabg. Thyroid. ; Patient HX: Evaluation of liver adenocarcinoma with mets; Additional info: Gastric cancer w mets TECHNIQUE: Imaging protocol: Computed tomography of the abdomen and pelvis without contrast. Radiation optimization: All CT scans at this facility use at least one of these dose optimization techniques: automated exposure control; mA and/or kV adjustment per patient size (includes targeted exams where dose is matched to clinical indication); or iterative reconstruction. COMPARISON: CR XR chest 1V portable [id number] 08/05/2020 8:09 AM RADIATION DOSE METRICS: Total DLP (mGy-cm): 1976.4 FINDINGS: Limitations: The absence of intravenous contrast lessens the sensitivity of this study for solid organ abnormalities. Tubes, catheters and devices: NG tube tip is in the stomach. Mediastinal space: There is a small hiatal hernia. Liver: There is a large mass in the right lobe of the liver measuring approximately 13 x 8 x 14 cm with numerous small satellite lesions. Current study is not directly comparable to the previous due to the absence of contrast, however this lesion appears definitely larger than on the prior study. Gallbladder and bile ducts: Multiple calcified gallstones are present. Pancreas: The pancreas is normal. Spleen: Normal. No splenomegaly. Adrenal glands: The adrenal glands are normal. Kidneys and ureters: There are multiple simple renal cysts. There is no evidence of hydronephrosis. There is no evidence of renal or ureteral calcifications. Stomach and bowel: Unremarkable. No obstruction. No mucosal thickening. Appendix: No evidence of appendicitis. Intraperitoneal space: There is a moderate amount of free intraperitoneal fluid present. Numerous peritoneal and omental nodules are again identified consistent with peritoneal metastasis. These have significantly increased compared with the previous examination. Vasculature: The aorta demonstrates mild atherosclerotic calcification. There is no evidence of an abdominal aortic aneurysm. Lymph nodes: There are enlarged retrocrural lymph nodes. There are numerous small gastrohepatic lymph nodes. Urinary bladder: Unremarkable as visualized. Reproductive: The prostate gland demonstrates nonspecific parenchymal calcifications. The prostate demonstrates moderate nonspecific enlargement. The seminal vesicles are normal. Bones/joints: The lumbar spine demonstrates moderate degenerative changes at multiple levels. There are Schmorl's node deformities involving superior endplates of L1 and L4. Soft tissues: There are bilateral inguinal hernias containing only fat. CT/CT chest abd pel wo con IMPRESSION: 1. Worsening hepatic mass which could represent primary adenocarcinoma of the liver or metastasis. 2. Worsening peritoneal and omental metastasis. 3. Moderate ascites COMMENTS: Consistent with the [employer]'s Incidental Findings Committee white paper (J Am Helen Radiol 2018): Any incidental renal lesion less than 1 cm or classified as too small to characterize, or any incidental cystic renal lesion characterized as simple-appearing, is likely benign. No follow-up imaging is recommended for these lesions per consensus recommendations based on imaging criteria. Radiation Dose CTDIVOL = (mGy): DLP = 1976.4~1976.4 (mGy-cm)
[2020-08-14] MEDS: pantoprazole DR 40 mg Tablet PO (22:09)
[2020-08-14] MEDS: famotidine 20 mg Tablet PO (22:10)
[2020-08-14] MEDS: sucralfate 1 gm Tablet PO (22:10)
[2020-08-14] MEDS: ciprofloxacin 400 MG/200 ML PREMIX 200 MG IV (22:11)
[2020-08-14 22:29] LABS: Ammonia 28 umol/L (16-60)
[2020-08-14] MEDS: sodium chloride 0.45% 1,000 ML 50 ML IV (22:30)
[2020-08-14 22:39] LABS: Thyroid Stimulating Hormone 6.87 uIU/mL (0.27-4.20)
--- NOTE | 2020-08-14 23:16 | PC.NURSE ---
THIS NURSE WAS NOTIFIED THAT PATIENT WAS HAVING COMPLAINTS OF SHORTNESS OF BREATH. UPON ENTERING ROOM PATIENT WAS BREATHING AT 22 R/MIN AND A SATURATION LEVEL OF 89% ON ROOM AIR. CHARGE NURSE ALSO PRESENT IN ROOM. THIS NURSE AUSCULTATED LUNGS AND HAD DIMINISHED SOUNDS BUT NO WHEEZING. CIPROFLOXACIN WAS PAUSED TO ASSESS FOR POSSIBLE REACTION. NO REACTION FOUND AND CIPROFLOXACIN RESTARTED. THIS NURSE STAYED WITH PATIENT AND BREATHING PATTERN IMPROVED TO 19 R/MIN WITH AN 02 SATURATION OF 94%.
[2020-08-15] VITALS (11 sets, daily range): BP systolic 86–109; BP diastolic 57–86; PULSE 82–93; RESP 16–18; TEMP 36.4–36.9; O2SAT 93–99
[2020-08-15] MEDS: ondansetron 2 mg/ML SDV 2 mL 4 MG IVP ×2 (00:02→12:40)
[2020-08-15] MEDS: metroNIDAZOLE IV 500 MG/100 ML PREMIX 100 MG IV ×3 (01:08→15:24)
[2020-08-15] MEDS: lanolin oint 7 gm 1 APPLIC TOPICAL (04:22)
[2020-08-15 05:39] LABS: Basophils % 0.2 %; Eosinophils % 0.1 %; Hematocrit 47.9 % (42.0-52.0); Hemoglobin 15.3 g/dL (11.7-16.6); Lymphocytes # 0.4 10^3/uL (0.8-4.8); Mean Corpuscular HGB Conc 31.9 g/dL (30.0-36.0); Mean Corpuscular Hemoglobin 28.2 pg (28.0-34.0); Mean Corpuscular Volume 88.4 fL (80-94); Monocytes # 0.5 10^3/uL (0.2-0.9); Monocytes % 3.6 %; Neutrophils % 92.6 %; Nucleated Red Blood Cells % 0 %; Platelet Count 285 10^3/cmm (130-400); Red Blood Count 5.42 10^6/uL (4.1-5.3); Red Cell Distribution Width 15.1 % (12.1-15.1); White Blood Count 14.6 10^3/uL (4.0-10.0)
[2020-08-15 05:46] LABS: Partial Thromboplastin Time 46.7 SECONDS (23.9-36.7)
[2020-08-15 05:53] LABS: Alanine Aminotransferase 23 U/L (0-41); Albumin Level 2.3 g/dL (3.5-5.2); Alkaline Phosphatase 283 IU/L (40-130); Anion Gap 19.8 (5-19); Aspartate Amino Transferase 61 U/L (0-40); Carbon Dioxide 22 mmol/L (22-29); Chloride 96 mmol/L (98-107); Globulin 4.2 g/dL (1.3-4.6); Glucose 106 mg/dL (65-115); Osmolality Calculated 311 mOsm/kg (285-295); Potassium 4.8 mmol/L (3.5-5.1); Sodium 133 mmol/L (136-145); Total Bilirubin 0.7 mg/dL (0.15-1.2); Total Protein 6.5 g/dL (6.6-8.7)
[2020-08-15 05:54] LABS: Lactate (Lactic Acid level) 1.4 mmol/L (0.5-2.2)
[2020-08-15 06:00] LABS: Blood Urea Nitrogen 110 mg/dL (8-23)
[2020-08-15 06:02] LABS: C Reactive Protein 55.5 mg/L (0.0-4.9); Magnesium 3.1 mg/dL (1.7-2.3); Phosphorus 4.4 mg/dL (2.5-4.5)
[2020-08-15 06:07] LABS: INR 2.97 (0.8-1.2)
[2020-08-15 06:12] LABS: NT Pro B Type Natriuretic Pept 2191 pg/mL (0-450); Procalcitonin 2.04 ng/mL (0-0.5)
[2020-08-15 06:23] LABS: Creatine Phosphokinase 46 U/L (39-308); Uric Acid 17.5 mg/dL (3.4-7.0)
[2020-08-15] MEDS: sucralfate 1 gm Tablet PO ×2 (06:41→16:56)
[2020-08-15] MEDS: ciprofloxacin 400 MG/200 ML PREMIX 200 MG IV ×2 (08:19→22:09)
[2020-08-15] MEDS: famotidine 20 mg Tablet PO (08:19)
[2020-08-15] MEDS: pantoprazole DR 40 mg Tablet PO ×2 (08:19→16:57)
[2020-08-15 09:26] LABS: Add Urine Microscopic? YES; Bilirubin Urine Neg (Negative); Blood Urine 2+ (Negative); Glucose Urine UA Norm (Normal); Ketones Urine Negative (Negative); Leukocyte Esterase Urine Negative (Negative); Nitrate Urine Negative (Negative); Protein Urine Neg (Negative); Specific Gravity, Urine 1.015 (1.005-1.030); Urine Appearance Clear (CLEAR); Urine Color Yellow (Yellow); Urobilinogen Urine Norm (Negative); pH Urine 5 (5-7)
[2020-08-15 09:27] LABS: Add Urine Culture? No; Bacteria Urine TRACE /hpf; RBC Urine 0-4 /hpf (0-2); Squamous Epithelial Cell Urine 0-4 /hpf (0-5); WBC Urine 0-4 /hpf (0-5)
--- NOTE | 2020-08-15 09:33 | PC.NURSE ---
Dr. Gibson made aware of current diet order, NG clamped at this time, new order received for clear liquid diet and keep ng clamped.
--- NOTE | 2020-08-15 10:17 | PC.CHAP ---
Pastoral Care Encounter/Spiritual Assessment Type of Contact [] Declined tumble tailstock turret lathe operator visit [] Patient/Family/Request visit [] Outpatient visit [] Follow-up visit [] Physician referral [] Code/Alert [x] Routine visit [] Staff referral [] Actively dying [] Patient sleeping [] Family support [] [] Out of room [] Palliative care [] [x] Receiving care in room [] Pre-surgical visit [] Trauma [] Long length of stay [] ICU visit [] Other: Relational/Emotional Strength [] Patient feels connected with others/family/visitors/staff [x] Distress [] Loneliness/isolation [] Abandonment Spirituality of Patient [x] Person of Trisha [] Attends Lutheran of their Trisha [x] Believes in Prayer [] Reads Bible or Confucianism materials [] There are Spiritual issues to be addressed Interlocking Tower Operator Interventions [x] Prayer [x] Active listening [x] Non-anxious presence [x] Spiritual/emotional support [] Crisis/trauma care [x] Spiritual counseling [] Bereavement support [] Provided bereavement packet [] Provided Bible/devotional materials [] Provided toy/stuffed animal, coloring book to patient or family member [] Provided Communion [] Anointing/Berry [] Salvation [x] Completed spiritual assessment [] Other: Impact on Illness or Injury [] Angry [x] Fearful [] Anxious [] Often cries [] Exhaustion [] Unable to work [] Unable to attend holiness [] Unable to walk/stand [] Unable to read [] Unable to drive [] Unable to eat/drink [] Unable to sleep [] Unable to be with family [] Patient intubated [] Other: Summary he is having pain. shortness of breath, has negative feelings not sure about what needs to done Time spent with patient 10 mins
--- NOTE | 2020-08-15 11:57 | P.PN_ITS ---
Subjective Subjective: Interval history: Overnight patient had coffee-ground emesis, NG tube was placed, minimal output, not clamped, patient is alert to person, place, time, abdomen is distended, denies any abdominal pain, no lightheadedness, dizziness, nausea, vomiting Vitals/I&O/Wt Last Vital Signs Temp 97.7 F 08/15/20 11:50 Pulse 90 08/15/20 11:50 Resp 16 08/15/20 11:50 BP 86/57 08/15/20 11:50 Pulse Ox 99 08/15/20 11:07 08/14/20 08/15/20 08/15/20 22:59 06:59 14:59 Intake Total 500 / 500 300 / 800 446 / 446 Output Total 425 / 425 100 / 100 Balance 500 / 500 -125 / 375 346 / 346 Weight last 48 hrs Weight 90.718 kg Physical Exam Const: COMMON NORMALS: no acute distress and patient oriented x3 HENMT: COMMON NORMALS: normocephalic HEAD & SCALP: normocephalic OTHER: NG tube in place Neck/C-Spine: COMMON NORMALS: no JVD Resp: COMMON NORMALS: normal respiratory effort, No retractions, No use of accessory muscles and clear to auscultation bilaterally AUSCULTATION: clear to auscultation bilaterally Cardio: COMMON NORMALS: no JVD, regular rate, regular rhythm, S1 normal heart sound present and S2 normal heart sound present RATE: regular rate RHYTHM: regular rhythm HEART SOUNDS: S1 normal heart sound present and S2 normal heart sound present GI: COMMON NORMALS: Normal to inspection, nondistended, normoactive bowel sounds present, Soft to palpation, non-tender, no masses and no bruits INSPECTION: Yes abdominal distension PALPATION: Yes Soft to palpation PERCUSSION: tympanic to percussion Extremity: COMMON NORMALS: capillary refill normal, no clubbing, cyanosis or edema, no calf tenderness and no pedal edema Neuro: COMMON NORMALS: patient oriented x3 Psych: COMMON NORMALS: mental status grossly normal Skin: NARRATIVE SKIN EXAM: Rosacea on the right cheek Data : 08/15/20 05:22 08/15/20 05:22 Micro: Microbiology 08/14/20 21:50 Blood Culture - Preliminary Blood SPECIMEN COLLECTED 08/14/20 21:45 Blood Culture - Preliminary Blood SPECIMEN COLLECTED A&P Assessment and plan (1) Upper GI bleed: -Coffee-ground emesis -INR 2.97, BUN 110, lactate 1.4, hemoglobin 15.3 but has polycythemia -All suspicious of upper GI bleed likely secondary to gastric ulcer and or malignancy -Has not taken Coumadin in over a week -Currently hemodynamic stable, asymptomatic Plan -Reverse INR with fresh frozen plasma -Protonix, Carafate -Monitor hemoglobin closely, monitor hemodynamics closely -DNR/DNI -We will try to avoid aggressive interventions, avoid EGD if possible Status: Acute (2) 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 -The tumor cells are positive for CK7 and high molecular weight keratin. -The cells are negative for hepatocyte antigen, CDX 2, CK20, and TTF-1. These stains are not specific for a primary lesion. -Primary tumors which have this profile include but are not limited to breast, salivary glands, upper gastrointestinal tract including esophagus, stomach, and small bowel, and tumors of the biliary tract including pancreas. -A primary cholangiolar carcinoma cannot be totally excluded. -The likelihood of a gastrointestinal (upper GI), appendiceal and pancreatobiliary primary is high on differential. Additional clinicopathological correlation with imaging is recommended as the patient has peritoneal carcinomatosis. The tissue biopsy tumor cells are limited and the cell block has been saved for molecular testing or tumor profile as needed by the oncologist. -Head CT no acute findings -CT scan of the chest shows nonspecific pulmonary nodules: There are multiple scattered tiny noncalcified nodules in both lungs, some of the nodules are peripheral or pleural based. Largest nodule measures 6 mm in the right upper lobe such as an image number 17 and the others are mostly in the 2-3 mm size range. These nodules are nonspecific and could be related to other etiologies however they are worrisome for metastatic disease and follow-up is suggested. Plan: -I have spoken to Dr. Alves, malignancy is quite advanced, diffuse, can consider hospice as a reasonable option -Patient has an appointment with Dr. Alves on Wednesday -DNR/DNI -Anticoagulation contraindicated due to GI bleed, continue SCDs Status: Acute (3) Hepatic metastases: Status: Acute (4) Acute hyperkalemia: -Received Kayexalate in the ER, repeat potassium tomorrow Status: Acute (5) Acute prerenal azotemia: -likely secondary to third spacing, dehydration -Very gentle hydration to avoid fluid overload Status: Acute (6) Leg swelling: Status: Acute (7) Dyslipidemia (high LDL; low HDL): Status: Acute (8) Atherosclerotic heart disease: Status: Acute Qualifiers: Coronary Disease-Associated Artery/Lesion type: [place] artery [place] vs. transplanted heart: [place] heart Associated angina: without angina Qualified Code(s): I25.10 - Atherosclerotic heart disease of [place] coronary artery without angina pectoris (9) HTN (hypertension): Status: Acute Qualifiers: Hypertension type: essential hypertension Qualified Code(s): I10 - Essential (primary) hypertension (10) Atrial fibrillation: -Patient's blood pressures are soft, hold metoprolol digoxin -We will discontinue Coumadin for now given elevated INR in the setting of metastatic disease to the liver, high risk of bleeding Status: Acute Qualifiers: Atrial fibrillation type: other persistent Qualified Code(s): I48.19 - Other persistent atrial fibrillation (11) Ascites: -Recurrent ascites -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 -To my knowledge there is been no pleural fluid analysis done in the past -Patient refuses to have a paracentesis during this hospital admission -Given patient's white blood cell count of 12, feelings of fatigue, malaise -We will start him on Cipro and Flagyl for SBP -Continue to clinically monitor Status: Acute (12) Digoxin toxicity: -Digoxin has been stopped, monitor telemetry Status: Acute Attestations Medical Necessity Statement*: Patient requires hospitalization, inpatient, greater than 2 midnights, for upper GI bleed, diffusely metastatic gastric cancer, digoxin toxicity Coding Level of Care Code 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 transplanted heart: [place] heart Associated angina: without angina HTN (hypertension) I10 Hypertension type: essential hypertension Atrial fibrillation I48.19 Atrial fibrillation type: other persistent Ascites R18.8 Digoxin toxicity T46.0X1A
[2020-08-15] MEDS: sodium chloride 0.45% 1,000 ML 100 ML IV ×2 (12:08→22:09)
--- NOTE | 2020-08-15 12:40 | PC.NURSE ---
Patient reports nausea with emesis, PRN zofran given per doctors orders, cool wash cloth provided, encouraged to hold off on clear liquid diet until nausea passes, verbalized understanding.
[2020-08-15 13:37] LABS: Hematocrit 43.8 % (42.0-52.0); Hemoglobin 14.3 g/dL (11.7-16.6)
--- NOTE | 2020-08-15 14:47 | PC.NURSE ---
Patient repositioned and barrier cream applied to bottom, non-blanchable redness noted to bottom with a tiny pin point open skin area, patient repositions with little assistance and verbal instruction.
--- NOTE | 2020-08-15 14:50 | PC.NURSE ---
patient denies further nausea.
[2020-08-15] MEDS: allopurinol 300 mg Tablet PO (16:56)
[2020-08-15 18:25] LABS: Basophils % 0.3 %; Eosinophils % 0.1 %; Hematocrit 44.9 % (42.0-52.0); Hemoglobin 14.2 g/dL (11.7-16.6); Lymphocytes # 0.6 10^3/uL (0.8-4.8); Lymphocytes % 5.2 %; Mean Corpuscular HGB Conc 31.6 g/dL (30.0-36.0); Mean Corpuscular Hemoglobin 28.4 pg (28.0-34.0); Mean Corpuscular Volume 89.8 fL (80-94); Mean Platelet Volume 9.1 fL (7.4-10.4); Monocytes # 0.5 10^3/uL (0.2-0.9); Monocytes % 4.8 %; Neutrophils # 9.95 10^3/uL (1.8-7.7); Neutrophils % 88.9 %; Nucleated Red Blood Cells % 0 %; Platelet Count 240 10^3/cmm (130-400); Red Cell Distribution Width 15.3 % (12.1-15.1); White Blood Count 11.2 10^3/uL (4.0-10.0)
[2020-08-15 18:53] LABS: INR 2.62 (0.8-1.2)
[2020-08-16] VITALS (10 sets, daily range): BP systolic 95–127; BP diastolic 64–80; PULSE 80–89; RESP 12–18; TEMP 35.9–36.7; O2SAT 90–96
[2020-08-16] MEDS: metroNIDAZOLE IV 500 MG/100 ML PREMIX 100 MG IV ×3 (00:09→15:05)
[2020-08-16 05:15] LABS: Basophils % 0.2 %; Eosinophils # 0.1 10^3/uL (0.0-0.8); Eosinophils % 0.5 %; Hematocrit 44.9 % (42.0-52.0); Hemoglobin 14.5 g/dL (11.7-16.6); Lymphocytes # 0.6 10^3/uL (0.8-4.8); Lymphocytes % 5.7 %; Mean Corpuscular HGB Conc 32.3 g/dL (30.0-36.0); Mean Corpuscular Hemoglobin 28.6 pg (28.0-34.0); Mean Corpuscular Volume 88.6 fL (80-94); Monocytes # 0.5 10^3/uL (0.2-0.9); Monocytes % 5.5 %; Neutrophils # 8.64 10^3/uL (1.8-7.7); Neutrophils % 87.6 %; Nucleated Red Blood Cells % 0 %; Platelet Count 222 10^3/cmm (130-400); Red Blood Count 5.07 10^6/uL (4.1-5.3); Red Cell Distribution Width 15.2 % (12.1-15.1); White Blood Count 9.9 10^3/uL (4.0-10.0)
[2020-08-16 05:40] LABS: INR 2.69 (0.8-1.2)
[2020-08-16 05:47] LABS: C Reactive Protein 68.2 mg/L (0.0-4.9); Magnesium 2.9 mg/dL (1.7-2.3); Phosphorus 3.3 mg/dL (2.5-4.5)
[2020-08-16 05:52] LABS: Alanine Aminotransferase 21 U/L (0-41); Albumin Level 2.3 g/dL (3.5-5.2); Alkaline Phosphatase 233 IU/L (40-130); Anion Gap 16.1 (5-19); Aspartate Amino Transferase 55 U/L (0-40); Calcium 7.6 mg/dL (8.5-10.5); Carbon Dioxide 23 mmol/L (22-29); Chloride 98 mmol/L (98-107); Globulin 3.6 g/dL (1.3-4.6); Glucose 117 mg/dL (65-115); Osmolality Calculated 306 mOsm/kg (285-295); Potassium 4.1 mmol/L (3.5-5.1); Sodium 133 mmol/L (136-145); Total Bilirubin 0.6 mg/dL (0.15-1.2); Total Protein 5.9 g/dL (6.6-8.7)
[2020-08-16 05:53] LABS: Lactate (Lactic Acid level) 1.4 mmol/L (0.5-2.2)
[2020-08-16 05:57] LABS: NT Pro B Type Natriuretic Pept 2710 pg/mL (0-450); Procalcitonin 1.75 ng/mL (0-0.5)
[2020-08-16 06:07] LABS: Creatine Phosphokinase 37 U/L (39-308); Uric Acid 16.1 mg/dL (3.4-7.0)
[2020-08-16] MEDS: HYDROcodone-acetaminophen 7.5-325 mg Tablet 1 TAB PO ×2 (06:18→17:17)
[2020-08-16] MEDS: sucralfate 1 gm Tablet PO ×2 (06:19→17:18)
[2020-08-16 06:42] LABS: Blood Urea Nitrogen 94 mg/dL (8-23)
[2020-08-16] MEDS: allopurinol 300 mg Tablet PO (08:03)
[2020-08-16] MEDS: pantoprazole DR 40 mg Tablet PO ×2 (08:03→17:18)
[2020-08-16] MEDS: ciprofloxacin 400 MG/200 ML PREMIX 200 MG IV ×2 (09:18→20:56)
[2020-08-16] MEDS: phytonadione (ADULT) 10 mg/mL Ampule 1 mL PO (09:18)
--- NOTE | 2020-08-16 10:21 | PC.NURSE ---
Removed NG tube, intact upon removal, tolerated well.
--- NOTE | 2020-08-16 11:52 | PM.PN ---
Subjective Subjective: Interval history: Patient was examined this morning, his NG tube is clamped, minimal abdominal pain, I had discussion about patient's goals of care, he tells me that he wants to try his chemotherapy, still having generalized weakness Vitals/I&O/Wt Last Vital Signs Temp 97.4 F L 08/16/20 08:00 Pulse 81 08/16/20 08:00 Resp 17 08/16/20 08:00 BP 102/73 08/16/20 08:00 Pulse Ox 93 08/16/20 08:00 08/15/20 08/16/20 08/16/20 22:59 06:59 14:59 Intake Total 1100 / 2527.667 500 / 3027.667 300 / 300 Output Total 345 / 745 175 / 920 250 / 250 Balance 755 / 1782.667 325 / 2107.667 50 / 50 Weight last 48 hrs Weight 90.718 kg Physical Exam Const: COMMON NORMALS: no acute distress and patient oriented x3 HENMT: COMMON NORMALS: normocephalic HEAD & SCALP: normocephalic Neck/C-Spine: COMMON NORMALS: no JVD Resp: COMMON NORMALS: normal respiratory effort, No retractions, No use of accessory muscles and clear to auscultation bilaterally AUSCULTATION: clear to auscultation bilaterally Cardio: COMMON NORMALS: no JVD, regular rate, regular rhythm, S1 normal heart sound present and S2 normal heart sound present RATE: regular rate RHYTHM: regular rhythm HEART SOUNDS: S1 normal heart sound present and S2 normal heart sound present GI: COMMON NORMALS: Normal to inspection, nondistended, normoactive bowel sounds present, Soft to palpation, non-tender, No hepatosplenomegaly present, no masses and no bruits PALPATION: Yes Soft to palpation and Yes No hepatosplenomegaly present Extremity: COMMON NORMALS: capillary refill normal, no clubbing, cyanosis or edema, no calf tenderness and no pedal edema Neuro: COMMON NORMALS: patient oriented x3 Psych: COMMON NORMALS: mental status grossly normal Data : 08/16/20 04:56 08/16/20 04:56 Micro: Microbiology 08/14/20 21:50 Blood Culture - Preliminary Blood NEGATIVE TO DATE 08/14/20 21:45 Blood Culture - Preliminary Blood NEGATIVE TO DATE A&P Assessment and plan (1) Upper GI bleed: Likely upper GI bleed from malignancy, given drop in hemoglobin and persistent uremia Question is did he take Coumadin or not, patient is unsure, will give another unit of FFP and vitamin K Continue to monitor hemoglobin, monitor for bleeding, INR still elevated, will give vitamin K and FFP Status: Acute (2) 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 -The tumor cells are positive for CK7 and high molecular weight keratin. -The cells are negative for hepatocyte antigen, CDX 2, CK20, and TTF-1. These stains are not specific for a primary lesion. -Primary tumors which have this profile include but are not limited to breast, salivary glands, upper gastrointestinal tract including esophagus, stomach, and small bowel, and tumors of the biliary tract including pancreas. -A primary cholangiolar carcinoma cannot be totally excluded. -The likelihood of a gastrointestinal (upper GI), appendiceal and pancreatobiliary primary is high on differential. Additional clinicopathological correlation with imaging is recommended as the patient has peritoneal carcinomatosis. The tissue biopsy tumor cells are limited and the cell block has been saved for molecular testing or tumor profile as needed by the oncologist. -ct chest: Lungs: There are multiple scattered tiny noncalcified nodules in both lungs, some of the nodules are peripheral or pleural based. Largest nodule measures 6 mm in the right upper lobe such as an image number 17 and the others are mostly in the 2-3 mm size range. These nodules are nonspecific and could be related to other etiologies however they are worrisome for metastatic disease and follow-up is suggested. Pleural space: There are small bilateral pleural effusions more on the right than on the left. Heart: Sternotomy wires and mediastinal surgical clips are present, consistent with previous coronary arterial bypass grafting. Aorta: Unremarkable. No aortic aneurysm. Lymph nodes: There are calcified mediastinal and hilar lymph nodes in keeping with old granulomatous disease. There is no evidence of lymphadenopathy. -I had discussion of patient's goals of care, is DNR/DNI, but would like to pursue chemotherapy, would like to stop to Dr. Alves on Wednesday about this Status: Acute (3) Hepatic metastases: Status: Acute (4) Acute hyperkalemia: -Received Kayexalate in the ER, repeat potassium today 4.1 Status: Acute (5) Acute prerenal azotemia: -likely secondary to third spacing, dehydration -Stop IV hydration, creatinine improved to 1.6, BUN 94, likely elevated from GI bleed from malignancy Status: Acute (6) Leg swelling: Status: Acute (7) Dyslipidemia (high LDL; low HDL): Status: Acute (8) Atherosclerotic heart disease: Status: Acute Qualifiers: Coronary Disease-Associated Artery/Lesion type: [place] artery [place] vs. transplanted heart: [place] heart Associated angina: without angina Qualified Code(s): I25.10 - Atherosclerotic heart disease of [place] coronary artery without angina pectoris (9) HTN (hypertension): Status: Acute Qualifiers: Hypertension type: essential hypertension Qualified Code(s): I10 - Essential (primary) hypertension (10) Atrial fibrillation: -Patient's blood pressures are soft, hold metoprolol digoxin -We will discontinue Coumadin for now given elevated INR in the setting of metastatic disease to the liver, high risk of bleeding Status: Acute Qualifiers: Atrial fibrillation type: other persistent Qualified Code(s): I48.19 - Other persistent atrial fibrillation (11) Ascites: -Recurrent ascites -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 -To my knowledge there is been no pleural fluid analysis done in the past -Patient refuses to have a paracentesis during this hospital admission -Given patient's white blood cell count of 12, feelings of fatigue, malaise -We will start him on Cipro and Flagyl for SBP -Continue to clinically monitor Status: Acute (12) Digoxin toxicity: Status: Acute Attestations Medical Necessity Statement*: Course hospitalization, for upper GI bleed likely secondary to gastric malignancy, metastatic, with elevated INR, digoxin toxicity, persistent uremia, dehydration, ALEXI Coding Level of Care Code 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 transplanted heart: [place] heart Associated angina: without angina HTN (hypertension) I10 Hypertension type: essential hypertension Atrial fibrillation I48.19 Atrial fibrillation type: other persistent Ascites R18.8 Digoxin toxicity T46.0X1A
[2020-08-16] MEDS: sodium chloride 0.45% 1,000 ML 100 ML IV (12:11)
--- NOTE | 2020-08-16 18:30 | PC.NURSE ---
repositioned and placed protective ointment to sacrum.
[2020-08-17] MEDS: metroNIDAZOLE IV 500 MG/100 ML PREMIX 100 MG IV ×4 (00:08→23:07)
[2020-08-17] MEDS: HYDROcodone-acetaminophen 7.5-325 mg Tablet 1 TAB PO ×3 (00:08→21:19)
[2020-08-17] MEDS: sodium chloride 0.45% 1,000 ML 100 ML IV ×2 (00:08→12:36)
[2020-08-17 03:41] VITALS: BP 105/69; PULSE 83; RESP 18; TEMP 36.4; O2SAT 93
[2020-08-17 05:42] LABS: Lactate (Lactic Acid level) 1.4 mmol/L (0.5-2.2)
--- NOTE | 2020-08-17 05:50 | PC.NURSE ---
SHIFT SUMMARY Patient rested well through the night requesting pain medication once. Vitals WNL.
[2020-08-17 06:10] LABS: Alanine Aminotransferase 19 U/L (0-41); Albumin Level 2.2 g/dL (3.5-5.2); Alkaline Phosphatase 210 IU/L (40-130); Aspartate Amino Transferase 53 U/L (0-40); Basophils % 0.2 %; Blood Urea Nitrogen 69 mg/dL (8-23); C Reactive Protein 65.1 mg/L (0.0-4.9); Calcium 7.5 mg/dL (8.5-10.5); Carbon Dioxide 22 mmol/L (22-29); Chloride 97 mmol/L (98-107); Eosinophils # 0.1 10^3/uL (0.0-0.8); Eosinophils % 0.5 %; Globulin 3.5 g/dL (1.3-4.6); Glucose 93 mg/dL (65-115); Hematocrit 44.7 % (42.0-52.0); Hemoglobin 14.5 g/dL (11.7-16.6); Lymphocytes % 8.6 %; Magnesium 2.7 mg/dL (1.7-2.3); Mean Corpuscular HGB Conc 32.4 g/dL (30.0-36.0); Mean Corpuscular Hemoglobin 28.4 pg (28.0-34.0); Mean Corpuscular Volume 87.6 fL (80-94); Mean Platelet Volume 9.2 fL (7.4-10.4); Monocytes # 0.7 10^3/uL (0.2-0.9); Monocytes % 6.5 %; Neutrophils # 9.46 10^3/uL (1.8-7.7); Neutrophils % 83.6 %; Nucleated Red Blood Cells % 0 %; Osmolality Calculated 290 mOsm/kg (285-295); Phosphorus 2.8 mg/dL (2.5-4.5); Platelet Count 240 10^3/cmm (130-400); Red Cell Distribution Width 15.2 % (12.1-15.1); Sodium 130 mmol/L (136-145); Total Bilirubin 0.6 mg/dL (0.15-1.2); Total Protein 5.7 g/dL (6.6-8.7); White Blood Count 11.3 10^3/uL (4.0-10.0)
[2020-08-17 06:14] LABS: NT Pro B Type Natriuretic Pept 2382 pg/mL (0-450); Procalcitonin 1.26 ng/mL (0-0.5)
[2020-08-17 06:22] LABS: Anion Gap 14.8 (5-19); Potassium 3.8 mmol/L (3.5-5.1)
[2020-08-17 06:25] LABS: Creatine Phosphokinase 31 U/L (39-308); Uric Acid 14.5 mg/dL (3.4-7.0)
[2020-08-17] MEDS: sucralfate 1 gm Tablet PO ×2 (06:25→17:41)
[2020-08-17 06:27] LABS: INR 1.29 (0.8-1.2)
[2020-08-17 07:09] VITALS: BP 98/65; PULSE 82; RESP 18; TEMP 36.6; O2SAT 91
[2020-08-17] MEDS: allopurinol 300 mg Tablet PO (08:41)
[2020-08-17] MEDS: pantoprazole DR 40 mg Tablet PO ×2 (08:41→17:41)
[2020-08-17] MEDS: ciprofloxacin 400 MG/200 ML PREMIX 200 MG IV ×2 (10:23→21:19)
[2020-08-17 11:12] VITALS: BP 94/63; PULSE 83; RESP 18; TEMP 36.9; O2SAT 94
--- NOTE | 2020-08-17 11:36 | PC.SOCIAL ---
Pg 2 IMM Explained to pt Pg 2 IMM. No questions voiced. Provided pt a copy. Signed, dated, & timed a copy & placed in chart.
--- NOTE | 2020-08-17 13:10 | PM.PN ---
Subjective Subjective: Interval history: This morning patient has no complaints, no fevers, chills, no nausea, no vomiting, abdomen still a bit distended, that was not bothering him, no bleeding, no headaches, blurry vision Vitals/I&O/Wt Last Vital Signs Temp 98.5 F 08/17/20 11:12 Pulse 83 08/17/20 11:12 Resp 18 08/17/20 11:12 BP 94/63 08/17/20 11:12 Pulse Ox 94 08/17/20 11:12 08/16/20 08/17/20 08/17/20 22:59 06:59 14:59 Intake Total 1660 / 3593 1060 / 4653 1360 / 1360 Output Total 200 / 550 350 / 900 100 / 100 Balance 1460 / 3043 710 / 3753 1260 / 1260 Physical Exam Const: COMMON NORMALS: no acute distress and patient oriented x3 HENMT: COMMON NORMALS: normocephalic HEAD & SCALP: normocephalic Neck/C-Spine: COMMON NORMALS: no JVD Resp: COMMON NORMALS: normal respiratory effort, No retractions, No use of accessory muscles and clear to auscultation bilaterally AUSCULTATION: clear to auscultation bilaterally Cardio: COMMON NORMALS: no JVD, regular rate, regular rhythm, S1 normal heart sound present and S2 normal heart sound present RATE: regular rate RHYTHM: regular rhythm HEART SOUNDS: S1 normal heart sound present and S2 normal heart sound present GI: COMMON NORMALS: Normal to inspection, nondistended, normoactive bowel sounds present, Soft to palpation, non-tender, No hepatosplenomegaly present, no masses and no bruits INSPECTION: Yes abdominal distension PALPATION: Yes Soft to palpation and Yes No hepatosplenomegaly present Extremity: COMMON NORMALS: capillary refill normal, no clubbing, cyanosis or edema, no calf tenderness and no pedal edema Neuro: COMMON NORMALS: patient oriented x3 Psych: COMMON NORMALS: mental status grossly normal Data : 08/17/20 04:30 08/17/20 04:30 A&P Assessment and plan (1) 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 -The tumor cells are positive for CK7 and high molecular weight keratin. -The cells are negative for hepatocyte antigen, CDX 2, CK20, and TTF-1. These stains are not specific for a primary lesion. -Primary tumors which have this profile include but are not limited to breast, salivary glands, upper gastrointestinal tract including esophagus, stomach, and small bowel, and tumors of the biliary tract including pancreas. -A primary cholangiolar carcinoma cannot be totally excluded. -The likelihood of a gastrointestinal (upper GI), appendiceal and pancreatobiliary primary is high on differential. Additional clinicopathological correlation with imaging is recommended as the patient has peritoneal carcinomatosis. The tissue biopsy tumor cells are limited and the cell block has been saved for molecular testing or tumor profile as needed by the oncologist. -ct chest: Lungs: There are multiple scattered tiny noncalcified nodules in both lungs, some of the nodules are peripheral or pleural based. Largest nodule measures 6 mm in the right upper lobe such as an image number 17 and the others are mostly in the 2-3 mm size range. These nodules are nonspecific and could be related to other etiologies however they are worrisome for metastatic disease and follow-up is suggested. Pleural space: There are small bilateral pleural effusions more on the right than on the left. Heart: Sternotomy wires and mediastinal surgical clips are present, consistent with previous coronary arterial bypass grafting. Aorta: Unremarkable. No aortic aneurysm. Lymph nodes: There are calcified mediastinal and hilar lymph nodes in keeping with old granulomatous disease. There is no evidence of lymphadenopathy. -I had discussion of patient's goals of care, is DNR/DNI, but would like to pursue chemotherapy, would like to stop to Dr. Alves on Wednesday about this Status: Acute (4) Hepatic metastases: Status: Acute (5) Acute hyperkalemia: -Resolved Status: Acute (6) Acute prerenal azotemia: -likely secondary to third spacing, dehydration -Continue IV hydration, creatinine 1.5, BUN 69 Status: Acute (7) Dyslipidemia (high LDL; low HDL): Status: Acute (8) Atherosclerotic heart disease: Status: Acute Qualifiers: Coronary Disease-Associated Artery/Lesion type: [place] artery [place] vs. transplanted heart: [place] heart Associated angina: without angina Qualified Code(s): I25.10 - Atherosclerotic heart disease of [place] coronary artery without angina pectoris (9) HTN (hypertension): Status: Acute Qualifiers: Hypertension type: essential hypertension Qualified Code(s): I10 - Essential (primary) hypertension (10) Atrial fibrillation: -Patient's blood pressures are soft, hold metoprolol and digoxin -We will discontinue Coumadin for now given elevated INR in the setting of metastatic disease to the liver, high risk of bleeding Status: Acute Qualifiers: Atrial fibrillation type: other persistent Qualified Code(s): I48.19 - Other persistent atrial fibrillation (11) Ascites: -Recurrent ascites -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 -To my knowledge there is been no pleural fluid analysis done in the past -Patient refuses to have a paracentesis during this hospital admission -Given patient's white blood cell count of 12, feelings of fatigue, malaise -We will start him on Cipro and Flagyl for SBP -Continue to clinically monitor Status: Acute (12) Digoxin toxicity: Digoxin has been held Status: Acute Attestations Medical Necessity Statement*: Patient requires hospitalization for diffusely metastatic malignancy likely GI, with ascites, with upper GI bleed, with concerns for early spontaneous tumor lysis syndrome Coding Level of Care Code 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 transplanted heart: [place] heart Associated angina: without angina HTN (hypertension) I10 Hypertension type: essential hypertension Atrial fibrillation I48.19 Atrial fibrillation type: other persistent Ascites R18.8 Digoxin toxicity T46.0X1A
[2020-08-17 16:00] VITALS: BP 104/66; PULSE 87; RESP 18; TEMP 36.4; O2SAT 93
[2020-08-17 20:00] VITALS: BP 108/67; PULSE 83; PULSE 87; RESP 17; TEMP 36.6; O2SAT 91
[2020-08-18] VITALS: BP 103/69; PULSE 86; RESP 17; TEMP 36.6; O2SAT 93
[2020-08-18 03:19] VITALS: BP 103/68; PULSE 81; RESP 16; TEMP 36.7; O2SAT 91
[2020-08-18 04:30] LABS: Basophils % 0.3 %; Eosinophils # 0.1 10^3/uL (0.0-0.8); Eosinophils % 0.6 %; Hematocrit 46.6 % (42.0-52.0); Hemoglobin 15.1 g/dL (11.7-16.6); Lymphocytes # 0.9 10^3/uL (0.8-4.8); Lymphocytes % 6.8 %; Mean Corpuscular HGB Conc 32.4 g/dL (30.0-36.0); Mean Corpuscular Hemoglobin 28.4 pg (28.0-34.0); Mean Corpuscular Volume 87.8 fL (80-94); Mean Platelet Volume 8.8 fL (7.4-10.4); Monocytes # 0.8 10^3/uL (0.2-0.9); Neutrophils # 10.96 10^3/uL (1.8-7.7); Neutrophils % 85.4 %; Nucleated Red Blood Cells % 0 %; Platelet Count 221 10^3/cmm (130-400); Red Blood Count 5.31 10^6/uL (4.1-5.3); Red Cell Distribution Width 15.4 % (12.1-15.1); White Blood Count 12.9 10^3/uL (4.0-10.0)
[2020-08-18 04:53] LABS: Lactate (Lactic Acid level) 1.4 mmol/L (0.5-2.2)
[2020-08-18 05:14] LABS: INR 1.28 (0.8-1.2)
[2020-08-18 05:15] LABS: Fibrinogen 551 mg/dL (174-498)
[2020-08-18 05:25] LABS: D Dimer 5.55 ug/mIFEU (0-0.59)
[2020-08-18 05:36] LABS: Procalcitonin 1.53 ng/mL (0-0.5)
[2020-08-18 05:57] LABS: Alanine Aminotransferase 20 U/L (0-41); Albumin Level 2.2 g/dL (3.5-5.2); Alkaline Phosphatase 209 IU/L (40-130); Aspartate Amino Transferase 54 U/L (0-40); Blood Urea Nitrogen 59 mg/dL (8-23); Calcium 7.7 mg/dL (8.5-10.5); Carbon Dioxide 20 mmol/L (22-29); Chloride 97 mmol/L (98-107); Globulin 3.6 g/dL (1.3-4.6); Glucose 100 mg/dL (65-115); Magnesium 2.6 mg/dL (1.7-2.3); Osmolality Calculated 285 mOsm/kg (285-295); Phosphorus 2.9 mg/dL (2.5-4.5); Sodium 129 mmol/L (136-145); Total Bilirubin 0.7 mg/dL (0.15-1.2); Total Protein 5.8 g/dL (6.6-8.7)
[2020-08-18 05:58] LABS: Partial Thromboplastin Time 50.4 SECONDS (23.9-36.7)
[2020-08-18 07:39] VITALS: BP 104/67; PULSE 85; RESP 18; TEMP 36.6; O2SAT 94
[2020-08-18] MEDS: HYDROcodone-acetaminophen 7.5-325 mg Tablet 1 TAB PO (07:51)
[2020-08-18] MEDS: sodium chloride 0.45% 1,000 ML 100 ML IV (07:52)
[2020-08-18] MEDS: metroNIDAZOLE IV 500 MG/100 ML PREMIX 100 MG IV (07:54)
[2020-08-18 08:00] VITALS: PULSE 81
[2020-08-18] MEDS: allopurinol 300 mg Tablet PO (08:07)
[2020-08-18] MEDS: pantoprazole DR 40 mg Tablet PO (08:07)
[2020-08-18] MEDS: ciprofloxacin 400 MG/200 ML PREMIX 200 MG IV (10:06)
--- NOTE | 2020-08-18 10:23 | USR_ITS ---
PROCEDURE INFORMATION: Exam: US Duplex Lower Extremity Veins, Bilateral Exam date and time: 08/18/2020 10:50 AM Age: 84 years old Clinical indication: Swelling (edema) of limb; Lower extremity, bilateral; Additional info: R/O dvt TECHNIQUE: Imaging protocol: Real-time duplex ultrasound of the extremities with 2-D duarte scale, color Doppler flow and spectral waveform analysis with image documentation. Complete exam focused on the bilateral lower extremity veins. COMPARISON: No relevant prior studies available. FINDINGS: Right deep veins: No deep venous thrombosis in the visualized right common femoral, profunda femoris, superficial femoral, popliteal, peroneal, or posterior tibial veins. Right superficial veins: Saphenofemoral junction is patent without thrombus. Left deep veins: No deep venous thrombosis in the visualized left common femoral, profunda femoris, superficial femoral, popliteal, peroneal, or posterior tibial veins. Left superficial veins: Saphenofemoral junction is patent without thrombus. Soft tissues: Unremarkable. US/CV venous duplex [facility] [id number] IMPRESSION: No deep venous thrombosis in the visualized bilateral lower extremities.
--- NOTE | 2020-08-18 10:24 | PM.DCS ---
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 transplanted heart: [place] heart Associated angina: without angina Qualified Code(s): I25.10 - Atherosclerotic heart disease of [place] coronary artery without angina pectoris (9) HTN (hypertension): Status: Acute Qualifiers: Hypertension type: essential hypertension Qualified Code(s): I10 - Essential (primary) hypertension (10) Atrial fibrillation: Status: Acute Qualifiers: Atrial fibrillation type: other persistent Qualified Code(s): I48.19 - Other persistent atrial fibrillation (11) Ascites: Status: Acute (12) Digoxin toxicity: Status: Acute Reason for Visit Reason for Visit: WEAKNESS, DIARRHEA Hospital Course Hospital Course This is a 84-year-old male with a past medical history of atrial fibrillation on Coumadin, metoprolol, digoxin, known history of metastatic adenocarcinoma recently diagnosed on 07/22/2020 with evidence of liver mets and peritoneal metastasis who presents to [facility] due to weakness, fatigue Patient was admitted to [facility] for weakness, fatigue secondary to dehydration, received IV fluids, clinically improved, discharged on instructions to drink plenty of electrolyte balance fluids Patient had elevated INR on admission, patient was unsure if he took his Coumadin or not, required 3 units FFP, vitamin K, INR reversed to 1.26 on discharge. After discussion with patient, given his bleeding risk, fall risk, and evidence of liver failure I have decided not to anticoagulate him. Patient voiced understanding, all questions answered, agreed to proceed. Patient has a history of metastatic adenocarcinoma, primary is unknown, but likely GI source, biopsy on 07/22/2020 showed metastatic adenocarcinoma, CT scan of the chest showed multiple scattered tiny noncalcified nodules in both lungs, concerning for metastatic disease. Patient was DNR/DNI, but after discussion with patient, he wants to discuss with Dr. Alves about pursuing chemotherapy. Patient has a appointment Dr. Alves on Wednesday. I did have a discussion about hospice, however patient declines at this time. Patient had ascites on admission, likely malignant ascites, patient refused paracentesis, was started on Cipro and Flagyl for SBP, discharged on 14 remaining days of Cipro and Flagyl. Patient had early evidence of spontaneous tumor lysis syndrome, given elevated creatinine, elevated potassium, uric acid, low calcium, mag high magnesium and phosphorus. Received IV hydration, allopurinol, clinically improved. Discharged on allopurinol. Patient had persistent hyponatremia throughout his hospital admission, did not improve with IV hydration, likely related to ascites, advised to drink electrolyte balance fluids Patient had evidence of upper GI bleed, coffee-ground emesis likely secondary to gastric malignancy on admission, his INR was reversed as above, Coumadin was discontinued, hemoglobin remained stable throughout his admission, no repeat bloody or black stools or hematemesis or coffee-ground emesis. I have discharged him on Protonix, Carafate with close follow-up with Dr. Alves as outpatient. In terms of his atrial fibrillation, I have held metoprolol as blood pressures have been borderline low, likely secondary to liver failure, he remained in normal sinus rhythm heart rates in the 80s throughout his hospital admission Patient had digoxin toxicity on admission, digoxin was permanently discontinued Physical Exam Const: COMMON NORMALS: no acute distress and patient oriented x3 HENMT: COMMON NORMALS: normocephalic HEAD & SCALP: normocephalic Neck/C-Spine: COMMON NORMALS: no JVD Resp: COMMON NORMALS: normal respiratory effort, No retractions, No use of accessory muscles and clear to auscultation bilaterally AUSCULTATION: clear to auscultation bilaterally Cardio: COMMON NORMALS: no JVD, regular rate, regular rhythm, S1 normal heart sound present and S2 normal heart sound present RATE: regular rate RHYTHM: regular rhythm HEART SOUNDS: S1 normal heart sound present and S2 normal heart sound present GI: COMMON NORMALS: Normal to inspection, nondistended, normoactive bowel sounds present, Soft to palpation, non-tender, no masses and no bruits INSPECTION: Yes abdominal distension PALPATION: Yes Soft to palpation Extremity: COMMON NORMALS: capillary refill normal, no clubbing, cyanosis or edema, no calf tenderness and no pedal edema Neuro: COMMON NORMALS: patient oriented x3 Psych: COMMON NORMALS: mental status grossly normal Discharge Data Data Completed and Pending: Completed Studies During Hospitalization Category Date Time Status CT chest abd pel wo con Urgent Cat Scan 08/14/20 21:[address] head wo con* 7 0450 Urgent Cat Scan 08/14/20 21:10 Completed US abdomen limite d [id number] Stat Ultrasound 08/14/20 13:30 Completed Pending at discharge Category Date Time Status Blood Culture Sta t Lab 08/14/20 21:50 Results DIC Profile AM LA BS Lab 08/19/20 04:00 Ordered DIC Profile AM LA BS Lab 08/20/20 04:00 Ordered Lactate (Lactic A obdulio level) AM LABS Lab 08/19/20 04:00 Ordered Lactate (Lactic A obdulio level) AM LABS Lab 08/20/20 04:00 Ordered Magnesium AM LABS Lab 08/19/20 04:00 Ordered Magnesium AM LABS Lab 08/20/20 04:00 Ordered Phosphorus AM LAB S Lab 08/19/20 04:00 Ordered Phosphorus AM LAB S Lab 08/20/20 04:00 Ordered Procalcitonin AM LABS Lab 08/19/20 04:00 Ordered Procalcitonin AM LABS Lab 08/20/20 04:00 Ordered Uric Acid AM LABS Lab 08/19/20 04:00 Ordered Uric Acid AM LABS Lab 08/20/20 04:00 [place] [id number] Stat Ultrasound 08/18/20 10:23 Ordered Labs from last 24 hours 08/18/20 08/18/20 08/18/20 04:18 04:18 04:18 WBC RBC Hgb Hct MCV MCH MCHC RDW Plt Count MPV Neut % (Auto) Lymph % (Auto) [place] % (Auto) Eos % (Auto) Baso % (Auto) Neut # (Auto) Lymph # (Auto) [place] # (Auto) Eos # (Auto) Baso # (Auto) Nucleated RBC % (a uto) Nucleated RBCs # PT 16.40 H INR 1.28 H APTT 50.4 H Fibrinogen 551 H Fibrin Degrad Prod ucts Pos, >=40 H D-Dimer 5.55 H Sodium 129 L Potassium 4.0 Chloride 97 L Carbon Dioxide 20 L Anion Gap 16.0 BUN 59 H Creatinine 1.6 H GFR Calculation Not Reportable Glucose 100 Calculated Osmolal ity 285 Lactate 1.4 Uric Acid 13.0 H Calcium 7.7 L Phosphorus 2.9 Magnesium 2.6 H Total Bilirubin 0.7 AST 54 H ALT 20 Alkaline Phosphata se 209 H Total Protein 5.8 L Albumin 2.2 L Globulin 3.6 Procalcitonin 1.53 H 08/18/20 04:18 WBC 12.9 H RBC 5.31 H Hgb 15.1 Hct 46.6 MCV 87.8 MCH 28.4 MCHC 32.4 RDW 15.4 H Plt Count 221 MPV 8.8 Neut % (Auto) 85.4 Lymph % (Auto) 6.8 [place] % (Auto) 6.0 Eos % (Auto) 0.6 Baso % (Auto) 0.3 Neut # (Auto) 10.96 H Lymph # (Auto) 0.9 [place] # (Auto) 0.8 Eos # (Auto) 0.1 Baso # (Auto) 0.0 Nucleated RBC % (a uto) 0 Nucleated RBCs # 0.0 PT INR APTT Fibrinogen Fibrin Degrad Prod ucts D-Dimer Sodium Potassium Chloride Carbon Dioxide Anion Gap BUN Creatinine GFR Calculation Glucose Calculated Osmolal ity Lactate Uric Acid Calcium Phosphorus Magnesium Total Bilirubin AST ALT Alkaline Phosphata se Total Protein Albumin Globulin Procalcitonin Vitals: Last Vital Signs Temp 97.8 F 08/18/20 07:39 Pulse 81 08/18/20 08:00 Resp 18 08/18/20 07:39 BP 104/67 08/18/20 07:39 Pulse Ox 94 08/18/20 07:39 Discharge Plan Discharge Patient Disposition: Home Condition: Stable Prescriptions: New sucralfate 1 gram Tablet 1 g PO BIDAC 30 Days Qty: 60 RF: 0 pantoprazole 40 mg Tablet,Delayed Release (Dr/Ec) 40 mg PO BID 30 Days Qty: 60 RF: 0 allopurinol 300 mg Tablet 300 mg PO DAILY 30 Days Qty: 30 RF: 0 ciprofloxacin HCl 500 mg tablet 500 mg PO BID 10 Days Qty: 20 RF: 0 Flagyl 500 mg tablet 500 mg PO Q8H 10 Days Qty: 30 RF: 0 Continued lorazepam 0.5 mg Tablet 0.5 mg PO Q4H PRN (Reason: sleep/stress) RF: 0 hydrocodone-acetaminophen 7.5-325 mg Tablet 1 tab PO Q6H PRN (Reason: Pain) RF: 0 Discontinued metoprolol tartrate 25 mg tablet 25 mg PO BID@0700,1900 RF: 0 digoxin 125 mcg (0.125 mg) tablet 125 mcg PO DAILY@0700 RF: 0 hydrocodone-acetaminophen 5-325 mg Tablet 1 tab PO Q4H PRN (Reason: Pain) RF: 0 Referrals: Ander Alves MD [Staff Physician] - 08/19/20 Sandip Sargent DO [Primary Care Provider] - Discharge Diet: Cardiac Discharge Activity: Resume usual activity Discharge Attestations Time Spent in Discharge Care*: less than 30 min Quality Metrics Clinical Quality Measures During this hospital stay, did patient experience: None Coding Level of Care Code Acute [employer] Diagnoses Tumor lysis syndrome E88.3 Upper GI bleed K92.2 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 transplanted heart: [place] heart Associated angina: without angina HTN (hypertension) I10 Hypertension type: essential hypertension Atrial fibrillation I48.19 Atrial fibrillation type: other persistent Ascites R18.8 Digoxin toxicity T46.0X1A
[2020-08-18 12:00] VITALS: BP 81/59; PULSE 99; RESP 18; TEMP 36.5; O2SAT 95
[2020-08-18] MEDS: ondansetron 2 mg/ML SDV 2 mL 4 MG IVP (12:14)
[2020-08-18 14:37] VITALS: BP 81/59; PULSE 99; RESP 18; TEMP 36.5; O2SAT 95
== END 2020-08-18 14:38 | disposition home or self-care (01) | DRG 377 ==
LOC: ER 17:10 → MEDSURG 18:39
PROVIDERS: Nurse Practitioner Family; Admitting Provider Family Medicine; Emergency Provider Family Medicine; PCP Internal Medicine; Visit Provider Family Medicine
DX: K92.2 Gastrointestinal hemorrhage, unspecified (principal); E88.3 Tumor lysis syndrome; C78.6 Secondary malignant neoplasm of retroperitoneum and peritoneum; C78.7 Secondary malignant neoplasm of liver and intrahepatic bile duct; R18.0 Malignant ascites; I48.19 Other persistent atrial fibrillation; T46.0X5A Adverse effect of cardiac-stimulant glycosides and drugs of similar action, initial encounter; E86.0 Dehydration; Z95.1 Presence of aortocoronary bypass graft; I10 Essential (primary) hypertension; E78.5 Hyperlipidemia, unspecified; I25.10 Atherosclerotic heart disease of native coronary artery without angina pectoris; Z87.891 Personal history of nicotine dependence; E87.5 Hyperkalemia; M79.89 Other specified soft tissue disorders; R91.8 Other nonspecific abnormal finding of lung field; Z66 Do not resuscitate; C80.1 Malignant (primary) neoplasm, unspecified
CPT/HCPCS: 12345; 36415; 36430; 70450; 71250; 74176; 76705; 80053; 80162; 81001; 82140; 82550; 83605; 83735; 83880; 84100; 84145; 84443; 84550; 85014; 85018; 85025; 85362; 85378; 85384; 85610; 85730; 86140; 86900; 86927; 87040; 93970; 94664; 97110; 97116; 97161; 97165; 97530; 97535; 99284; J0744; J2405; J3430; J7040; P9017; S0030

== ENCOUNTER 2020-08-19 14:01 | Outpatient (CLI) | payer MEDICARE, SELFPAY ==
--- NOTE | 2020-08-20 17:22 | ONC CON_ITS ---
Dr. Alves New Patient Note Patient: Goran Betancourt Unit #: [id number]: [id number] Dicatated By: Ander Alves M.D.Date of Visit: Aug 19, 2020 Onc MED New Patient/Consult Referring Physician: Dr. Sandip Sargent M.D. History of Present Illness: Mr. Goran Betancourt, is a [id number] gentleman with a history of abdominal pain and distention underwent CT scan of abdomen pelvis on July 09, 2020 which shows diffuse fatty infiltration in the liver, large area of low-attenuation involving the right hepatic lobe with surrounding micronodular disease the large right hepatic lesion measuring 9.1 x 6.1 cm and diffuse induration and mesenteric nodularity consistent with peritoneal carcinomatosis. Small amount of perihepatic and perisplenic ascites. Small amount of fluid in the pericolic gutter. Small right pleural effusion. Subsequently underwent CT-guided liver mass biopsy on July 31, 2020 which confirmed adenocarcinoma, PSA was 3.1 Patient was recently admitted to hospital on August 14, 2020 due to generalized weakness and fatigue due to dehydration patient was treated symptomatically and his overall condition improved and hospital discussed with patient regarding paracentesis but patient declined as patient was complaining of dark-colored stools and coffee-ground emesis he was started on Carafate. And also treated with ciprofloxacin and Flagyl. Patient has history of atrial fibrillation for which she was on Coumadin. Patient is complaining of generalized weakness and fatigue but denies any melena or hematochezia denies any jaundice denies any abdominal pain but fullness. Denies any hemoptysis or hematemesis. But poor appetite. Past Medical History: Mr. Betancourt's medical history consists of atherosclerotic heart disease, atrial fibrillation, dyslipidemia, hypercholesterolemia, and hypertension. Past Surgical History: Mr. Betancourt's surgical/procedural history consists of colonoscopy, liver core biopsy, thyroid cyst excision, and open heart surgery in 2012. Medications: Ciprofloxacin HCl 1 Tablet (of 500 mg) Oral b.i.d. for 10 days Allergies: No Known Allergies. Social History: Mr. Betancourt is . Mr. Betancourt no longer smokes. He has no history of drinking. Family History: There is no documented family history. Review Of Symptoms: Review of Systems is not available for this patient. Vital Signs: Performed on Aug 19, 2020 14:43: 0, 28.70, 2.09 sq.m, 70 in, 97 %, 99 /min, 14 /min, 64/49 mm(hg) (LOW), 96.4 F (LOW), and 200 lbs (HIGH). Performance Status: 3 - Capable of only limited self-care, confined to bed or chair more than 50% of waking hours. (ECOG) Physical Examination: ENMT - No mouth sores, no thrush, no jaundice, Respiratory - Poor air entry otherwise clear, Cardiovascular - Regular rate and rhythm of heart, Abdomen - Soft, distended with fluid shift no rebound tenderness, Extremities - 1+ bilateral edema. Lab/Imaging: Most recent lab results are not available for this patient. Impression: Metastatic adenocarcinoma per liver biopsy done on July 31, 2020, primary unknown but immunohistochemistry suggestive of GI source Malignant ascites/carcinomatosis per CT scan of abdomen pelvis done on July 09, 2020 History of atrial fibrillation, on anticoagulation Hypertension Plan: Discussed with patient regarding his disease status and treatment options, at this point, primary is unknown, will consider cancer type ID to identify primary for the metastatic disease to the liver as well as carcinomatosis seen on the CT scan of abdomen pelvis done in June 2020.Also consider molecular profiling to identify targetable mutations Overall , patient has a poor performance status and considering his advanced age and comorbid condition he may not be able to tolerate systemic therapy unless or if molecular profiling shows targetable agent but patient and his son prefer supportive care if cancer is not curable and patient was informed that his disease is not curable and he will be on some sort of treatment for long-term in that case patient and his son prefer hospice, at patient request, will refer him to hospice for evaluation and for further care. Signed By: Ander Alves M.D. <<Signature on File>>
== END 2020-08-19 14:02 | disposition home or self-care (01) ==
LOC: ONCMED 14:04
PROVIDERS: PCP Internal Medicine; Visit Provider Internal Medicine Hematology & Oncology
DX: C16.9 Malignant neoplasm of stomach, unspecified (principal); C78.7 Secondary malignant neoplasm of liver and intrahepatic bile duct; R18.0 Malignant ascites; I48.91 Unspecified atrial fibrillation; Z79.01 Long term (current) use of anticoagulants; I10 Essential (primary) hypertension; Z79.899 Other long term (current) drug therapy
CPT/HCPCS: 99204